=== PATIENT | male | born 1960 | race African-American/Black ===

== ENCOUNTER 2018-04-28 01:29 | Inpatient (IN) ==
--- NOTE | 2018-04-28 02:51 | ED ---
HPI General Chief complaint: Chest Pain Stated complaint: Medical Time Seen by Provider: 04/28/18 02:20 Source: patient History of Present Illness HPI narrative: Is a 58-year-old man that was brought in by law enforcement apparently from the airport. History sounds like he has a history of multiple strokes in the past. He has left leg weakness. He was living at home until about a week or so ago made the decision to stop living at home by himself. Previously he had used a walker or cane to get around but he states his doctor actually told him he did not need a walker to get around now. He made the decision to come to a rehab hospital here in [place] to get stronger he states he spent a week packing up all of his stuff. His sister helped arrange the rehab hospital. He does not know the name of the hospital. He apparently arrived at the airport this evening, and was a little bit late. His rider however was supposed to meet him at the airport left. He apparently was therefore stuck at the airport, had been seizing for several hours, and then was brought to the emergency department. Initially there is some complaints of somatic symptoms. With me he states only that he had a little bit of left arm pain that started during the flight. Related Data Home Medications Medication Instructions Recorded Confirmed acetaminophen [Tylenol] 650 mg PO Q6H PRN 04/28/18 04/28/18 albuterol sulfate [Ventolin HFA] 2 puff INHALATION Q4-6H PRN 04/28/18 04/28/18 amlodipine 10 mg PO DAILY 04/28/18 04/28/18 aspirin [Aspir-81] 81 mg PO DAILY 04/28/18 04/28/18 atorvastatin 40 mg PO DAILY 04/28/18 04/28/18 docusate sodium 50 mg PO BID 04/28/18 04/28/18 furosemide [Lasix] 10 mg PO DAILY 04/28/18 04/28/18 hydrochlorothiazide 25 mg PO BID 04/28/18 04/28/18 ibuprofen 800 mg PO TID PRN 04/28/18 04/28/18 lamotrigine 25 mg PO BID 04/28/18 04/28/18 levetiracetam [Keppra] 750 mg PO BID 04/28/18 04/28/18 lisinopril 2.5 mg PO DAILY 04/28/18 04/28/18 meclizine 25 mg PO BID PRN 04/28/18 04/28/18 metformin 1,000 mg PO BID 04/28/18 04/28/18 nitroglycerin [Nitrostat] 0.4 mg SUBLINGUAL Q5-15M PRN 04/28/18 04/28/18 ondansetron [Zofran ODT] 4 mg PO Q6-8H PRN 04/28/18 04/28/18 trazodone 150 mg PO DAILY 04/28/18 04/28/18 Allergies Allergy/AdvReac Type Severity Reaction Status Date / Time iodine Allergy Anaphylaxis Verified 04/28/18 01:47 latex Allergy Anaphylaxis Verified 04/28/18 01:47 shellfish derived Allergy Anaphylaxis Verified 04/28/18 01:38 Review of Systems ROS: all other systems reviewed are negative [facility] Medical History Medical History Diabetes (Acute) High cholesterol (Acute) Hypertension (Acute) Seizure (Acute) Stroke (Acute) TIA (transient ischemic attack) (Acute) Social History Social History Substance History: No History of Abuse Second Hand Smoke Exposure: No Smoking Status: Never smoker How Often Do You Have a Drink Containing Alcohol: Never Recent Travel in [facility] within the Last 8 Weeks: No Recent Out of Country Travel within the Last 8 Weeks: No Immunization History Tetanus Immunization: Unsure Exam Narrative Exam Narrative: GENERAL: 58-year-old man, well-appearing, no acute distress. SKIN: Focused skin assessment warm/dry. HEAD: Atraumatic. Normocephalic. EYES: Pupils equal and round. No scleral icterus. No injection or drainage. ENT: No nasal bleeding or discharge. Mucous membranes pink and moist. NECK: Trachea midline. No JVD. CARDIOVASCULAR: Regular rate and rhythm. No murmur appreciated. RESPIRATORY: No accessory muscle use. Clear to auscultation. Breath sounds equal bilaterally. GASTROINTESTINAL: Abdomen soft, non-tender, nondistended. Hepatic and splenic margins not palpable. MUSCULOSKELETAL: No obvious deformities. No clubbing. No cyanosis. No edema. NEUROLOGICAL: Awake and alert. No obvious cranial nerve deficits. He does have some stiffness and weakness on the left side. Normal speech. He is able to walk but requires some assistance. There is a little bit of dragging gait on the left foot. PSYCHIATRIC: Appropriate mood and affect; insight and judgment normal. Course Initial Documented Vital Signs Temperature 97.8 F 04/28/18 01:30 Pulse Rate 89 04/28/18 01:30 Respiratory Rate 20 04/28/18 01:30 Blood Pressure 180/99 H 04/28/18 01:30 Pulse Oximetry 98 04/28/18 01:30 Last Documented Vital Signs Temperature 97.8 F 04/28/18 01:30 Pulse Rate 89 04/28/18 01:30 Respiratory Rate 20 04/28/18 01:30 Blood Pressure 180/99 H 04/28/18 01:30 Pulse Oximetry 98 04/28/18 01:30 Medical Decision Making MDM Narrative Medical decision making narrative: 58-year-old male presents to the emergency department with what appears to be isolated case management issues. But for his ride not showing up at the airport, he would not be in the emergency department. There is some complaints of pain on the left arm as well. I do not think this is an anginal equivalent. Clearly he has cardiovascular risk factors. His EKG shows some lateral ST/T wave changes. Check a troponin. We will try to talk to a [facility] records administrator it sounds like they have been talkative from the airport. Will also try to call his sister to figure out where he was trying to get to. Labs are unremarkable. Note no case management right now. We will have them see him in the morning, try to discharge to the rehab facility that should be expecting him. Medical Screen Exam Complete: Yes Emergency Medical Condition: Yes Lab Data Result diagrams: 04/28/18 03:00 04/28/18 03:00 Lab Results 04/28/18 04/28/18 Range/Units 03:00 03:00 WBC 6.6 (4.0-11.0) th/mm3 RBC 4.57 (4.50-5.90) mil/mm3 Hgb 15.0 (13.0-17.0) gm/dL Hct 43.2 (39.0-51.0) % MCV 94.5 (80.0-100.0) fL MCH 32.7 (27.0-34.0) pg MCHC 34.6 (32.0-36.0) % RDW 12.1 (11.6-17.2) % Plt Count 241 (150-450) th/mm3 MPV 7.7 (7.0-11.0) fL Neut % (Auto) 37.8 (16.0-70.0) % Lymph % (Auto) 46.7 H (9.0-44.0) % [place] % (Auto) 12.6 H (0.0-8.0) % Eos % (Auto) 2.1 (0.0-4.0) % Baso % (Auto) 0.8 (0.0-2.0) % Neut # (Auto) 2.5 (1.8-7.7) th/mm3 Lymph # (Auto) 3.1 (1.0-4.8) th/mm3 [place] # (Auto) 0.8 (0.0-0.9) th/mm3 Eos # (Auto) 0.1 (0.0-0.4) th/mm3 Baso # (Auto) 0.1 (0.0-0.2) th/mm3 WBC Differential . Differential Comment Auto diff final Sodium 142 (136-145) meq/L Potassium 3.1 L (3.5-5.1) meq/L Chloride 106 (98-107) meq/L Carbon Dioxide 28.2 (21.0-32.0) meq/L Anion Gap 8 (5-15) meq/L BUN 11 (7-18) mg/dL Creatinine 0.97 (0.60-1.30) mg/dL Estimated GFR Greater than 89 (>89) mL/min Random Glucose 126 H (74-106) mg/dL Calcium 8.8 (8.5-10.1) mg/dL Troponin I Less than 0.02 L (0.02-0.05) ng/mL Discharge Plan Discharge Disposition Patient Disposition: 01 Discharge Home Discharge Condition Condition: Stable Discharge Order Discharge Orders: Discharge Order (Routine); Ordered 04/28/18 Ordered By: Mustapha Cage Discharge Details Diagnosis: Weakness Physicians Team ED Provider: Mustapha Cage Primary Care Provider: UNKNOWN, Rxs /Orders / Referrals /Forms Prescriptions: No Action atorvastatin 40 mg Tablet 40 mg PO DAILY RF: 0 acetaminophen [Tylenol] 325 mg Tablet 650 mg PO Q6H PRN (Reason: Pain) RF: 0 ibuprofen 800 mg Tablet 800 mg PO TID PRN (Reason: Pain) RF: 0 docusate sodium 50 mg Capsule 50 mg PO BID RF: 0 aspirin [Aspir-81] 81 mg Tablet,Delayed Release (Dr/Ec) 81 mg PO DAILY RF: 0 lamotrigine 25 mg Tablet 25 mg PO BID RF: 0 meclizine 25 mg Tablet 25 mg PO BID PRN (Reason: Nausea) RF: 0 amlodipine 10 mg Tablet 10 mg PO DAILY RF: 0 trazodone 150 mg Tablet 150 mg PO DAILY RF: 0 metformin 1,000 mg Tablet 1,000 mg PO BID RF: 0 nitroglycerin [Nitrostat] 0.4 mg Tablet, Sublingual 0.4 mg SUBLINGUAL Q5-15M PRN (Reason: Pain) RF: 0 levetiracetam [Keppra] 750 mg Tablet 750 mg PO BID RF: 0 hydrochlorothiazide 25 mg Tablet 25 mg PO BID RF: 0 furosemide [Lasix] 20 mg Tablet 10 mg PO DAILY RF: 0 albuterol sulfate [Ventolin HFA] 90 mcg/actuation Hfa Aerosol Inhaler 2 puff INHALATION Q4-6H PRN (Reason: Shortness Of Breath) RF: 0 ondansetron [Zofran ODT] 4 mg Tablet,Disintegrating 4 mg PO Q6-8H PRN (Reason: Nausea) RF: 0 lisinopril 2.5 mg Tablet 2.5 mg PO DAILY RF: 0 Discharge Instructions Patient Printed Instructions: Weakness (ED) Additional Instructions: Continue current medications. Follow-up with your rehab facility as planned. Status ED Status: Ready for Discharge
[2018-04-28] MEDS ORDERED: Acetaminophen 500 MG Tablet PO ONE (02:57)
[2018-04-28 03:09] LABS: Baso # (Auto) 0.1 th/mm3 (0.0-0.2); Baso % (Auto) 0.8 % (0.0-2.0); Eos # (Auto) 0.1 th/mm3 (0.0-0.4); Eos % (Auto) 2.1 % (0.0-4.0); Hematocrit 43.2 % (39.0-51.0); Lymph # (Auto) 3.1 th/mm3 (1.0-4.8); Lymph % (Auto) 46.7 % (9.0-44.0); Mean Corpuscular HGB Conc 34.6 % (32.0-36.0); Mean Corpuscular Hemoglobin 32.7 pg (27.0-34.0); Mean Corpuscular Volume 94.5 fL (80.0-100.0); Mean Platelet Volume 7.7 fL (7.0-11.0); Mono # (Auto) 0.8 th/mm3 (0.0-0.9); Mono % (Auto) 12.6 % (0.0-8.0); Neut # (Auto) 2.5 th/mm3 (1.8-7.7); Neut % (Auto) 37.8 % (16.0-70.0); Platelet Count 241 th/mm3 (150-450); Red Blood Count 4.57 mil/mm3 (4.50-5.90); Red Cell Distribution Width 12.1 % (11.6-17.2); White Blood Count 6.6 th/mm3 (4.0-11.0)
[2018-04-28 03:31] LABS: Anion Gap 8 meq/L (5-15); Blood Urea Nitrogen 11 mg/dL (7-18); Calcium 8.8 mg/dL (8.5-10.1); Carbon Dioxide 28.2 meq/L (21.0-32.0); Chloride 106 meq/L (98-107); Glomerular Filtration Rate Greater Than 89 mL/min (>89); Glucose,Random 126 mg/dL (74-106); Potassium 3.1 meq/L (3.5-5.1); Sodium 142 meq/L (136-145)
--- NOTE | 2018-04-28 10:04 | ECG ---
Date Performed: 04/28/2018 Time Performed: 01:49:33 PTAGE: 58 years EKG: Baseline artifact present Sinus rhythm WITH FREQUENT VENTRICULAR PREMATURE COMPLEXES POSSIBLE LEFT ATRIAL ENLARGEMENT Nonspecific ST and T wave abnormalities ABNORMAL ECG NO PREVIOUS TRACING DOCTOR: Noah Pradhan Interpretating Date/Time 04/28/2018 10:03:21
[2018-04-28] MEDS ORDERED: Acetaminophen 325 MG Tablet PO PRN (13:57)
[2018-04-28] MEDS ORDERED: Nitroglycerin SL (Override) 0.4 MG Tab SL PRN (13:57)
[2018-04-28] MEDS ORDERED: Dextrose 50% in Water 50 ML Vial IV.PUSH PRN ×2 (14:01→14:04)
[2018-04-28] MEDS ORDERED: Bisacodyl 10 MG Supp RECTAL PRN (14:01)
--- NOTE | 2018-04-28 14:06 | P.HPIM ---
History of Present Illness Primary Care Physician: UNKNOWN Chief Complaint: Worsening left-sided weakness History of Present Illness: This is a 58-year-old male with history of previous CVA, TIA, hypertension, diabetes mellitus brought in by the enforcement from the airport. He has baseline left sided weakness from a previous stroke and was living at home independently until about a week ago but has recently made a decision to stop living at home by himself because he started having worsening left-sided weakness and is more difficult for him to ambulate. Previously he used a walker or cane to get around but now it is even harder. He made a decision to go to rehab hospital in [place] to get stronger. Rehab has apparently been arranged by the sister. However during his flight, he noticed worsening slurring of speech and left-sided weakness apparently getting better. He arrived in the airport late and no one picked him up hence midline enforcement brought him to the hospital. He denies any fever, nausea, vomiting, headache but is a mild left arm pain during the flight. - Diagnosis (1) TIA (transient ischemic attack) [facility] - History History Provided By: Patient - Medical History Medical History: Medical History (Last Reviewed 04/28/18 @ 13:49 by Jazmyne Chowdary MD) Diabetes High cholesterol Hypertension Seizure Stroke TIA (transient ischemic attack) - Surgical History Surgical History: Surgical History (Last Updated 04/28/18 @ 13:50 by Jazmyne Chowdary MD) H/O knee surgery History of mandibular surgery - Family History Family History: Family History (Last Updated 04/28/18 @ 13:50 by Jazmyne Chowdary MD) Other No pertinent family history - Social History I have reviewed the patient's Social History: Yes - Tobacco History Second Hand Smoke Exposure: No Smoking Status: Never smoker - Alcohol History How Often Do You Have a Drink Containing Alcohol: Never - Substance Use History Substance History: No History of Abuse - Travel History Recent Travel in the [place] Within the Last 8 Weeks: No Recent Travel Out of the Country Within the Last 8 Weeks: No - Immunization History Tetanus Immunization: Unsure Medications and Allergies Allergies Allergy/AdvReac Type Severity Reaction Status Date / Time iodine Allergy Anaphylaxis Verified 04/28/18 01:47 latex Allergy Anaphylaxis Verified 04/28/18 01:47 shellfish derived Allergy Anaphylaxis Verified 04/28/18 01:38 Home Medications Medication Instructions Recorded Confirmed Type acetaminophen [Tylenol] 650 mg PO Q6H PRN 04/28/18 04/28/18 History albuterol sulfate [Ventolin HFA] 2 puff INHALATION Q4-6H PRN 04/28/18 04/28/18 History amlodipine 10 mg PO DAILY 04/28/18 04/28/18 History aspirin [Aspir-81] 81 mg PO DAILY 04/28/18 04/28/18 History atorvastatin 40 mg PO DAILY 04/28/18 04/28/18 History docusate sodium 50 mg PO BID 04/28/18 04/28/18 History furosemide [Lasix] 10 mg PO DAILY 04/28/18 04/28/18 History hydrochlorothiazide 25 mg PO BID 04/28/18 04/28/18 History ibuprofen 800 mg PO TID PRN 04/28/18 04/28/18 History lamotrigine 25 mg PO BID 04/28/18 04/28/18 History levetiracetam [Keppra] 750 mg PO BID 04/28/18 04/28/18 History lisinopril 2.5 mg PO DAILY 04/28/18 04/28/18 History meclizine 25 mg PO BID PRN 04/28/18 04/28/18 History metformin 1,000 mg PO BID 04/28/18 04/28/18 History nitroglycerin [Nitrostat] 0.4 mg SUBLINGUAL Q5-15M PRN 04/28/18 04/28/18 History ondansetron [Zofran ODT] 4 mg PO Q6-8H PRN 04/28/18 04/28/18 History trazodone 150 mg PO DAILY 04/28/18 04/28/18 History Exam Vital signs: Vital Signs 04/28/18 01:30 04/28/18 02:30 04/28/18 03:56 Temperature 97.8 F Pulse Rate 89 82 86 Respiratory Rate 20 18 17 Blood Pressure 180/99 H 147/88 H 156/93 H Pulse Oximetry 98 99 98 04/28/18 10:45 Temperature 97.8 F Pulse Rate 80 Respiratory Rate 20 Blood Pressure 145/79 H Pulse Oximetry 99 Intake & Output 04/27/18 04/28/18 04/28/18 18:59 06:59 18:59 Weight 107 kg Narrative: GENERAL: Not in acute distress, well-nourished. HEAD: Atraumatic. Normocephalic. EYES: PERRL, full EOMs, no jaundice, nonicteric, pink conjunctivae without injection, moist mucosa ENT: Nose without bleeding, purulent drainage.Airway patent. NECK: Trachea midline, no mass, no obvious thyromegaly. CARDIOVASCULAR: Regular rate and rhythm without murmurs, gallops, or rubs. RESPIRATORY: Clear to auscultation with normal respiratory effort. Breath sounds equal bilaterally. No use of accessory muscles of respiration. GASTROINTESTINAL: Abdomen soft, normal bowel sounds, non-tender, nondistended. No hepato-splenomegaly or palpable mass. No guarding. ISAEL and exam deferred. MUSCULOSKELETAL: Extremities without clubbing, cyanosis, or edema. INTEGUMENTARY: Warm and dry, no rash of generalized distribution. NEUROLOGICAL: Awake, alert, oriented 3. (+) Nasolabial fold narrowing on the left, mild slurring of speech. Moves all 4 extremities, muscle strength testing 5 over 5 both upper extremities, 4/5 LLE compared to 5/5 on RLE which allegedly worse than usual. There is also decreased sensation left upper extremity. No pronator drift. PSYCHIATRIC: Normal mood, appropriate affect. Results - Labs CBC & Chem 7: 04/28/18 03:00 04/28/18 03:00 Labs: Short CBC 04/28/18 Range/Units 03:00 WBC 6.6 (4.0-11.0) th/mm3 Hgb 15.0 (13.0-17.0) gm/dL Hct 43.2 (39.0-51.0) % Plt Count 241 (150-450) th/mm3 BMP 04/28/18 03:00 Sodium 142 Potassium 3.1 L Chloride 106 Carbon Dioxide 28.2 BUN 11 Creatinine 0.97 Calcium 8.8 Cardiac Enzymes 04/28/18 Range/Units 03:00 Troponin I Less than 0.02 L (0.02-0.05) ng/mL Caprini VTE Risk Assessment Caprini VTE Risk Assessment: No/Low Risk (score <= 1) Caprini Risk Assessment Model: Point Value = 1 Point Value = 2 Point Value = 3 Point Value = 5 Age 41-60 Minor surgery BMI > 25 kg/m2 Swollen legs Varicose veins or History of unexplained or recurrent spontaneous Oral contraceptives or hormone replacement Sepsis (< 1 month) Serious lung disease, including pneumonia (< 1 month) Abnormal pulmonary function Acute myocardial infarction Congestive heart failure (< 1 month) History of inflammatory bowel disease Medical patient at bed rest Age 61-74 Arthroscopic surgery Major open surgery (> 45 min) Laparoscopic surgery (> 45 min) Malignancy Confined to bed (> 72 hours) Immobilizing plaster cast Central venous access Age >= 75 History of VTE Family history of VTE Factor V Leiden Prothrombin [id number] Lupus anticoagulant Anticardiolipin antibodies Elevated serum homocysteine Heparin-induced thrombocytopenia Other congenital or acquired thrombophilia Stroke (< 1 month) Elective arthroplasty Hip, pelvis, or leg fracture Acute spinal cord injury (< 1 month) Prophylaxis Regimen: Total Risk Factor Score Risk Level Prophylaxis Regimen 0-1 Low Early ambulation 2 Moderate Order ONE of the following: *Sequential Compression Device (SCD) *Heparin 5000 units SQ BID 3-4 Higher Order ONE of the following medications: *Heparin 5000 units SQ TID *Enoxaparin/Lovenox 40 mg SQ daily (WT < 150 kg, CrCl > 30 mL/min) *Enoxaparin/Lovenox 30 mg SQ daily (WT < 150 kg, CrCl > 10-29 mL/min) *Enoxaparin/Lovenox 30 mg SQ BID (WT < 150 kg, CrCl > 30 mL/min) AND/OR *Sequential Compression Device (SCD) 5 or more Highest Order ONE of the following medications: *Heparin 5000 units SQ TID (Preferred with Epidurals) *Enoxaparin/Lovenox 40 mg SQ daily (WT < 150 kg, CrCl > 30 mL/min) *Enoxaparin/Lovenox 30 mg SQ daily (WT < 150 kg, CrCl > 10-29 mL/min) *Enoxaparin/Lovenox 30 mg SQ BID (WT < 150 kg, CrCl > 30 mL/min) AND *Sequential Compression Device (SCD) Assessment and Plan - Assessment (1) TIA (transient ischemic attack) Code(s): G45.9 - Transient cerebral ischemic attack, unspecified Status: Acute - Plan This is a 58-year-old male with history of diabetes mellitus, hypertension previous CVA with new left-sided weakness and slurring of speech Rule out TIA-allegedly new sided weakness/slurring of speech that is getting better. Since patient is past the tPA window and symptoms are getting better, we will go ahead and check an MRI of the head and carotid ultrasound. Patient has previous history of stroke. Consult neurology, restart aspirin and statin, check lipid panel, hemoglobin A1c, keep on telemetry. Hypertension, uncontrolled-restart home medications including Norvasc, Lasix, hydrochlorothiazide, lisinopril, will let blood pressure autoregulate for now. Diabetes mellitus-restart metformin, sliding scale insulin History of seizures-restart Keppra and lamotrigine. Consult physical therapy. Consult case management. Patient may already have a place at the [place]. DVT prophylaxis: Lovenox.
[2018-04-28] MEDS: Lisinopril 5 MG Tablet PO SCH (15:32)
[2018-04-28] MEDS: amLODIPine 10 MG Tablet PO SCH (15:32)
[2018-04-28] MEDS: Enoxaparin Inj 30 MG/0.3 ML Syringe SQ SCH (15:32)
[2018-04-28] MEDS: levETIRAcetam 250 MG Tablet PO SCH ×2 (16:23→22:02)
[2018-04-28] MEDS: Furosemide 20 MG Tablet PO SCH (16:23)
[2018-04-28] MEDS: lamoTRIgine 25 MG TABLET PO SCH ×2 (16:24→22:14)
--- NOTE | 2018-04-28 17:02 | US ---
EXAM DATE: 04/28/2018 4:30 PM EST AGE/SEX: 58 years / Male INDICATIONS: Transient ischemic attack. CLINICAL DATA: This is the patient's initial encounter. Patient reports that signs and symptoms have been present for 1 day and indicates a pain score of 0/10. MEDICAL/SURGICAL HISTORY: . Diabetes. Hypercholesterolemia. Hypertension. Seizure. Transient ischemic attack. . Knee surgery. Mandibular surgery. COMPARISON: No prior exams available for comparison. VELOCITY PARAMETERS: ICA/CCA Ratio: Right 0.9 , Left 0.6 ICA: Right 81 cm/sec, Left 75 cm/sec CCA: Right 88 cm/sec, Left 117 cm/sec ECA: Right 85 cm/sec, Left 77 cm/sec Vertebral: Right 31 cm/sec antegrade, Left 47 cm/sec antegrade FINDINGS: Right Carotid: No significant plaque is visualized.The waveforms are within normal limits. Left Carotid: No significant plaque is visualized. The waveforms are within normal limits. Other: None. CONCLUSION: 1. Right Internal Carotid Artery: Normal. No significant plaque or narrowing. 2. Left Internal Carotid Artery: Normal. No significant plaque or narrowing. Electronically signed by: Sehrwin Maldonado MD 04/28/2018 5:00 PM EST
[2018-04-28] MEDS: Insulin NovoLOG Aspart Correctional Sugar Inj SQ SCH ×2 (18:06→22:10)
[2018-04-28] MEDS: hydroCHLOROthiazide 25 MG Tablet PO SCH (18:07)
--- NOTE | 2018-04-28 21:15 | CT ---
EXAM DATE: 04/28/2018 9:07 PM EST AGE/SEX: 58 years / Male INDICATIONS: Left sided weakness. CLINICAL DATA: This is the patient's initial encounter. Patient reports that signs and symptoms have been present for 1 day and indicates a pain score of 0/10. MEDICAL/SURGICAL HISTORY: Diabetes. Hypertension. Cerebrovascular disease. Seizure None. RADIATION DOSE: 56.35 CTDI (mGy) COMPARISON: No prior exams available for comparison. TECHNIQUE: CT of the head without contrast. Using automated exposure control and adjustment of the mA and/or kV according to patient size, radiation dose was kept as low as reasonably achievable to ob tain optimal diagnostic quality images. DICOM format image data is available electronically for revi ew and comparison. FINDINGS: Cerebrum: The ventricles are normal for age. No evidence of midline shift, mass lesion, hemorrhage or acute infarction. No extraaxial fluid collections are seen. There is an old white matter lacunar infarct of the right frontal lobe measuring 1.2 x 2.0 cm. Posterior Fossa: The cerebellum and brainstem are intact. The 4th ventricle is midline. The cerebe llopontine angle is unremarkable. Extracranial: The visualized portion of the orbits is intact. Skull: The calvaria is intact. No evidence of skull fracture. CONCLUSION: 1. No acute intracranial abnormality. 2. 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 . Electronically signed by: Sherwin Maldonado MD 04/28/2018 9:13 PM EST
[2018-04-28] MEDS: Docusate Sodium Liq 100 MG/10 ML UDC PO SCH (22:11)
--- NOTE | 2018-04-29 01:44 | MB ---
cc: Óscar Crook MD, PhD DATE: 04/28/2018 REASON FOR CONSULTATION: Seizure, worsening left-sided weakness. HISTORY OF PRESENT ILLNESS: This is a very nice 58-year-old man who states he has had 3 strokes in the past. The first he states occurred when he was 16 years of age. He states it was due to "hypertension." He states he takes Xarelto. He also has secondary seizures, which he describes as grand mal seizures. He has residual left-sided weakness due to a stroke, but today was at the airport apparently was told that he had seizure and now he feels that his left side is weaker than normal. He had worsening slurring of his speech as well. PAST MEDICAL HISTORY: Remarkable for 3 strokes in the past at a young age, hypertension, diabetes, seizure disorder, hypercholesterolemia. HOME MEDICATIONS: 1. Tylenol. 2. Albuterol. 3. Amlodipine 10 mg daily. 4. Aspirin 81 mg daily. 5. Atorvastatin 40 mg daily. 6. Docusate 50 mg b.i.d. 7. Lasix 10 mg daily. 8. Hydrochlorothiazide 25 mg daily. 9. Ibuprofen 800 mg daily. 10. Lamotrigine 25 mg b.i.d. 11. Keppra 750 mg b.i.d. 12. Lisinopril 2.5 mg daily. 13. Meclizine 25 mg daily. 14. Metformin. 15. Zofran. 16. He states he thinks he is on Xarelto as well, but this is not documented. PAST MEDICAL HISTORY: The patient has a vagus nerve stimulator in place for his seizures. PHYSICAL EXAMINATION: NEUROLOGIC: His blood pressure is 155/71, pulse is 79, respiratory rate is 22, temperature 98 degrees. HIGHER CORTICAL FUNCTION: He is alert. Speech is dysarthric. Cranial nerves intact. Motor exam, he has got a left hemiparesis roughly 3/5, left arm and left leg, which he states is weaker than baseline. Normal strength on the right. Reflexes are symmetric. There is no Babinski sign. DIAGNOSTIC DATA: CT of the brain, no acute changes and old right periventricular white matter lacunar infarction. There is no hemorrhage. Carotid ultrasound is within normal limits with no significant carotid artery stenosis. His EKG is normal sinus rhythm with frequent PVCs. LABORATORY DATA: White count is 6600, hemoglobin 15, hematocrit 43.2%, platelets 241,000. Sodium is 142, potassium 3.1, chloride 106, CO2 is 28.2, BUN is 11, creatinine 0.97, GFR is greater than 89, glucose 126, calcium 8.8. IMPRESSION: Recurrent seizures and increasing left-sided weakness. Rule out recurrent stroke. This could have been seizure, now with a postictal Jaren's paralysis. RECOMMENDATION: Because of the VNS, unable to do an MRI of the brain at the present time. I would like to repeat the CT of the brain tomorrow to further assess for a new stroke. We will obtain an EEG as well, clarify his anticoagulant status. He feels he was on Xarelto at home. I would like to check hypercoagulable labs because of his strokes at a young age. For now, continue him on aspirin. I will also increase his Keppra dose to 1000 mg b.i.d. Óscar Crook MD, PhD KATHLEEN/riddhi , 09:48 PM , 09:55 PM
[2018-04-29 06:46] LABS: Anion Gap 8 meq/L (5-15); Blood Urea Nitrogen 7 mg/dL (7-18); Calcium 8.1 mg/dL (8.5-10.1); Carbon Dioxide 28.9 meq/L (21.0-32.0); Chloride 105 meq/L (98-107); Glomerular Filtration Rate Greater Than 89 mL/min (>89); Glucose,Random 100 mg/dL (74-106); Potassium 3.3 meq/L (3.5-5.1); Sodium 142 meq/L (136-145)
[2018-04-29 06:47] LABS: Cholesterol 136 mg/dL (120-200); Triglycerides 111 mg/dL (42-150)
[2018-04-29 06:50] LABS: Chol/HDL Ratio 2.74 Ratio; HDL Cholesterol 49.6 mg/dL (40.0-60.0); LDL Cholesterol,Calculated 64 mg/dL (0-99)
[2018-04-29] MEDS: Insulin NovoLOG Aspart Correctional Sugar Inj SQ SCH ×4 (07:46→20:43)
[2018-04-29] MEDS: Docusate Sodium Liq 100 MG/10 ML UDC PO SCH ×2 (09:05→20:42)
[2018-04-29] MEDS: Lisinopril 5 MG Tablet PO SCH (09:05)
[2018-04-29] MEDS: lamoTRIgine 25 MG TABLET PO SCH ×2 (09:06→20:42)
[2018-04-29] MEDS: Furosemide 20 MG Tablet PO SCH (09:07)
[2018-04-29] MEDS: amLODIPine 10 MG Tablet PO SCH (09:07)
[2018-04-29] MEDS: levETIRAcetam 250 MG Tablet PO SCH ×2 (09:08→20:42)
[2018-04-29] MEDS: hydroCHLOROthiazide 25 MG Tablet PO SCH ×2 (10:01→18:46)
--- NOTE | 2018-04-29 11:22 | ECHRPT ---
Indication: cva/tia CONCLUSIONS Normal left ventricular size. Moderate concentric left ventricular hypertrophy. The left ventricular systolic function is normal with an estimated ejection fraction in the range of 55-60%. Ulmeu-af-kthz mitral valve regurgitation. The estimated pulmonary arterial pressure is 38 mmHg. BP: / HR: Rhythm: MEASUREMENTS (Male / Female) Normal Values Technical Quality: 2D ECHO LV Diastolic Diameter PLAX 4.6 cm 4.2 - 5.9 / 3.9 - 5.3 cm LV Systolic Diameter PLAX 2.9 cm IVS Diastolic Thickness 1.3 cm 0.6 - 1.0 / 0.6 - 0.9 cm LVPW Diastolic Thickness 1.2 cm 0.6 - 1.0 / 0.6 - 0.9 cm LV Relative Wall Thickness 0.5 RV Internal Dim ED PLAX 2.4 cm LVOT Diameter 2.0 cm Aortic Root Diameter 2.3 cm LA Systolic Diameter LX 2.8 cm 3.0 - 4.0 / 2.7 - 3.8 cm LV Ejection Fraction MOD 4C 71.1 % LV Ejection Fraction 4C AL 71.6 % LV Ejection Fraction MOD 2C 47.3 % LV Ejection Fraction 2C AL 49.0 % M-MODE Aortic Root Diameter MM 2.9 cm LA Systolic Diameter MM 4.2 cm LA Ao Ratio MM 1.4 DOPPLER AV Peak Velocity 126.0 cm/s AV Peak Gradient 6.4 mmHg LVOT Peak Velocity 115.0 cm/s LVOT Peak Gradient 5.3 mmHg AV Area Cont Eq pk 2.9 cm Mitral E Point Velocity 57.8 cm/s Mitral A Point Velocity 60.0 cm/s Mitral E to A Ratio 1.0 LV E' Lateral Velocity 8.6 cm/s Mitral E to LV E' Lateral Ratio 6.7 LV E' Septal Velocity 6.3 cm/s Mitral E to LV E' Septal Ratio 9.1 TR Peak Velocity 262.0 cm/s TR Peak Gradient 27.0 mmHg Right Atrial Pressure 10.0 mmHg Pulmonary Artery Systolic Pressu 37.5 mmHg Right Ventricular Systolic Press 37.5 mmHg PV Peak Velocity 94.8 cm/s PV Peak Gradient 3.6 mmHg FINDINGS LEFT VENTRICLE Normal left ventricular size. Moderate concentric left ventricular hypertrophy. The left ventricular systolic function is normal with an estimated ejection fraction in the range of 55-60%. RIGHT VENTRICLE Normal right ventricular size and systolic function. LEFT ATRIUM The left atrial size is normal. RIGHT ATRIUM The right atrial size is normal. ATRIAL SEPTUM Normal atrial septal thickness without atrial level shunting by limited color doppler interrogation. AORTA The aortic root and proximal ascending aorta are normal in size on limited imaging. MITRAL VALVE Tucho-xo-ebrw mitral valve regurgitation. AORTIC VALVE Trileaflet aortic valve. No aortic valve stenosis or regurgitation. TRICUSPID VALVE The estimated pulmonary arterial pressure is 38 mmHg. PULMONARY VALVE No pulmonary valve regurgitation or stenosis. VESSELS The inferior vena cava is normal in size. PERICARDIUM No pericardial effusion. Mustapha Sellers MD, FACC (Electronically Signed) Final Date:29 April 2018 11:21
[2018-04-29 11:23] LABS: Hemoglobin A1c 5.1 % (4.3-6.0)
--- NOTE | 2018-04-29 13:02 | P.PNIM ---
Subjective Interval history: Late entry. Patient seen earlier this morning. No further seizures. Left- sided weakness persisting. Physical Exam Vital signs: Vital Signs 04/28/18 15:34 04/28/18 15:36 04/28/18 16:27 Temperature 98 F Pulse Rate 79 74 Respiratory Rate 22 16 Blood Pressure 155/71 H 138/84 Pulse Oximetry 98 98 04/28/18 19:03 04/29/18 00:00 04/29/18 03:34 Temperature 98.1 F 97.8 F 97.7 F Pulse Rate 72 68 57 L Respiratory Rate 18 Blood Pressure 122/77 107/64 109/59 L Pulse Oximetry 96 100 99 04/29/18 08:00 04/29/18 12:00 Temperature 97.4 F L 97.4 F L Pulse Rate 63 74 Respiratory Rate 20 20 Blood Pressure 115/63 116/73 Pulse Oximetry 98 97 Intake & Output 04/28/18 04/29/18 04/29/18 18:59 06:59 18:59 Intake Total 120 / 120 Output Total 450 / 450 Balance -330 / -330 Weight 104.326 kg Intake: Oral 120 / 120 Output: Urine 450 / 450 Other: # Voids 0 1 Date of Last Bowel Movement 04/26/18 04/26/18 Weight On Admission 107 kg Narrative: GENERAL: Not in acute distress CARDIOVASCULAR: Regular rate and rhythm without murmurs, gallops, or rubs. RESPIRATORY: Clear to auscultation with normal respiratory effort. Breath sounds equal bilaterally. No use of accessory muscles of respiration. NEUROLOGICAL: Awake, alert, oriented 3. Left upper and lower extremities with 4 out of 5 strength. The rest of his extremities are 5 out of 5. PSYCHIATRIC: Normal mood, appropriate affect. Results - Labs CBC & Chem 7: 04/28/18 03:00 04/29/18 05:59 Laboratory Results - last 24 hr 04/28/18 04/28/18 04/29/18 18:05 22:09 05:59 Sodium 142 Potassium 3.3 L Chloride 105 Carbon Dioxide 28.9 Anion Gap 8 BUN 7 Creatinine 0.73 Estimated GFR Greater than 89 POC Glucose 109 85 Random Glucose 100 Hemoglobin A1c Calcium 8.1 L Triglycerides 111 Cholesterol 136 LDL Cholesterol, Calc 64 HDL Cholesterol 49.6 Cholesterol/HDL Ratio 2.74 04/29/18 04/29/18 04/29/18 05:59 07:37 12:04 Sodium Potassium Chloride Carbon Dioxide Anion Gap BUN Creatinine Estimated GFR POC Glucose 98 99 Random Glucose Hemoglobin A1c 5.1 Calcium Triglycerides Cholesterol LDL Cholesterol, Calc HDL Cholesterol Cholesterol/HDL Ratio - Imaging Impressions Carotid Doppler Study 04/28/18 00:00 CONCLUSION: 1. Right Internal Carotid Artery: Normal. No significant plaque or narrowing. 2. Left Internal Carotid Artery: Normal. No significant plaque or narrowing. Head CT 04/28/18 00:00 CONCLUSION: 1. No acute intracranial abnormality. 2. 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 . Assessment and Plan - Assessment (1) TIA (transient ischemic attack) Code(s): G45.9 - Transient cerebral ischemic attack, unspecified Status: Acute - Plan 58-year-old male with history of diabetes mellitus, hypertension previous CVA with new left-sided weakness and slurring of speech Rule out TIA-allegedly new sided weakness/slurring of speech that is getting better. - Patient reportedly has previous history of stroke. -Appreciate neurology following. -Continue aspirin and statin. keep on telemetry. History of seizures-reported breakthrough seizures. Apparently today, the patient reported to staff that he had another seizure. This was not witnessed. - Continue with increased dose of Keppra. Continue lamotrigine. -Appreciate neurology following. Repeat CAT scan today is pending. Hypertension -Continue home medications including Norvasc, Lasix, hydrochlorothiazide, lisinopril Diabetes mellitus-continue metformin, sliding scale insulin Physical therapy following. Patient will need rehab. Case management following. DVT prophylaxis: Lovenox.
--- NOTE | 2018-04-29 15:19 | CT ---
EXAM DATE: 04/29/2018 3:13 PM EST AGE/SEX: 58 years / Male INDICATIONS: Hemiparesis, Headache CLINICAL DATA: This is the patient's subsequent encounter. Patient reports that signs and symptoms h ave been present for 1 day and indicates a pain score of 3/10. MEDICAL/SURGICAL HISTORY: Diabetes. Hypertension. Stroke. . Mandibular surgery RADIATION DOSE: 42.12 CTDI (mGy) [place] [facility] [place]. . TECHNIQUE: CT of the head without contrast. Using automated exposure control and adjustment of the mA and/or kV according to patient size, radiation dose was kept as low as reasonably achievable to ob tain optimal diagnostic quality images. DICOM format image data is available electronically for revi ew and comparison. FINDINGS: Cerebrum: There is a remote small infarct in the right frontal lobe measuring up to about 2 cm x 1.2 cm, stable. No intracranial mass, hemorrhage or shift. Posterior Fossa: The cerebellum and brainstem are intact. The 4th ventricle is midline. The cerebe llopontine angle is unremarkable. Extracranial: The visualized portion of the orbits is intact. Skull: The calvaria is intact. No evidence of skull fracture. CONCLUSION: 1. No acute findings. 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 . Electronically signed by: Adryan Barger MD 04/29/2018 3:18 PM EST
[2018-04-29] MEDS: Enoxaparin Inj 30 MG/0.3 ML Syringe SQ SCH (15:28)
--- NOTE | 2018-04-29 18:51 | P.PNNEU ---
Subjective Subjective Comments: Pt feels left sided strength is improving. ?? felt might have had another sz but none witnessed Active Medications: Active Medications Acetaminophen (Tylenol) 650 mg PO Q6H PRN PRN Reason: Pain 1-2 Albuterol (Ventolin Hfa Inh) 2 puff INH Q4H PRN PRN Reason: SHORTNESS OF BREATH Amlodipine Besylate (Norvasc) 10 mg PO DAILY [facility] Last Admin: 04/29/18 09:07 Dose: 10 mg Aspirin (Ecotrin) 81 mg PO DAILY [facility] Last Admin: 04/29/18 09:06 Dose: 81 mg Atorvastatin Calcium (Lipitor) 40 mg PO DAILY [facility] Last Admin: 04/29/18 09:06 Dose: 40 mg Bisacodyl (Dulcolax Supp) 10 mg RECTAL DAILY PRN PRN Reason: SEVERE CONSITIPATION Dextrose (D50w Vial) 50 ml IV.PUSH UNSCH PRN PRN Reason: PER HYPOGLYCEMIA PROTOCOL Docusate Sodium (Colace Liq) 50 mg PO BID [facility] Last Admin: 04/29/18 09:05 Dose: Not Given Enalaprilat (Vasotec Inj) 1.25 mg IV.PUSH Q6H PRN PRN Reason: SBP>160, DBP>90 Enoxaparin Sodium (Lovenox Inj) 30 mg SQ Q24H [facility] Last Admin: 04/29/18 15:28 Dose: 30 mg Furosemide (Lasix) 10 mg PO DAILY [facility] Last Admin: 04/29/18 09:07 Dose: 10 mg Glucagon (Glucagon Inj) 1 mg OTHER UNSCH PRN PRN Reason: for Hypoglycemia Protocol Hydrochlorothiazide (Hydrodiuril) 25 mg PO BID@0900,1800 [facility] Last Admin: 04/29/18 18:46 Dose: 25 mg Ibuprofen (Motrin) 800 mg PO TID PRN PRN Reason: Pain 3-10 Insulin Aspart (Novolog Insulin Correctional Sugar Inj) 0 unit SQ ACHS [facility]; Protocol Last Admin: 04/29/18 17:33 Dose: Not Given Lamotrigine (Lamictal) 25 mg PO BID [facility] Last Admin: 04/29/18 09:06 Dose: 25 mg Levetiracetam (Keppra) 1,000 mg PO BID [facility] Last Admin: 04/29/18 09:08 Dose: 1,000 mg Lisinopril (Prinivil) 2.5 mg PO DAILY [facility] Last Admin: 04/29/18 09:05 Dose: 2.5 mg Lorazepam (Ativan Inj) 1 mg IV.PUSH Q4H PRN PRN Reason: SEIZURES Meclizine HCl (Antivert) 25 mg PO BID PRN PRN Reason: Nausea Metformin HCl (Glucophage) 1,000 mg PO BID [facility] Last Admin: 04/29/18 09:08 Dose: 1,000 mg Nitroglycerin (Nitrostat Sl (Override)) 0.4 mg SL Q5M PRN PRN Reason: CHEST PAIN Ondansetron HCl (Zofran Odt) 4 mg PO Q6H PRN PRN Reason: Nausea Sennosides (Senokot) 17.2 mg PO Q12H PRN PRN Reason: Moderate Constipation Trazodone HCl (Desyrel) 150 mg PO [facility] Allergies/Adverse Reactions: Allergies Allergy/AdvReac Type Severity Reaction Status Date / Time iodine Allergy Anaphylaxis Verified 04/28/18 01:47 latex Allergy Anaphylaxis Verified 04/28/18 01:47 shellfish derived Allergy Anaphylaxis Verified 04/28/18 01:38 Physical Exam Vital signs: Vital Signs 04/28/18 19:03 04/29/18 00:00 04/29/18 03:34 Temperature 98.1 F 97.8 F 97.7 F Pulse Rate 72 68 57 L Respiratory Rate 18 18 18 Blood Pressure 122/77 107/64 109/59 L Pulse Oximetry 96 100 99 04/29/18 08:00 04/29/18 12:00 04/29/18 15:40 Temperature 97.4 F L 97.4 F L 98.2 F Pulse Rate 63 74 65 Respiratory Rate 20 20 20 Blood Pressure 115/63 116/73 116/60 Pulse Oximetry 98 97 97 Intake & Output 04/28/18 04/29/18 04/29/18 18:59 06:59 18:59 Intake Total 120 / 120 Output Total 450 / 450 Balance -330 / -330 Weight 104.326 kg Intake: Oral 120 / 120 Output: Urine 450 / 450 Other: # Voids 0 1 Date of Last Bowel Movement 04/26/18 04/26/18 Weight On Admission 107 kg - Routine Neurological Exam alert, speech normal CN intact MOTOR 4+/5 LUE and LLE Objective Radiology Results: CT today shows no acute change Laboratory Results - last 24 hr 04/28/18 04/29/18 04/29/18 22:09 05:59 05:59 Sodium 142 Potassium 3.3 L Chloride 105 Carbon Dioxide 28.9 Anion Gap 8 BUN 7 Creatinine 0.73 Estimated GFR Greater than 89 POC Glucose 85 Random Glucose 100 Hemoglobin A1c 5.1 Calcium 8.1 L Triglycerides 111 Cholesterol 136 LDL Cholesterol, Calc 64 HDL Cholesterol 49.6 Cholesterol/HDL Ratio 2.74 04/29/18 04/29/18 04/29/18 07:37 12:04 16:53 Sodium Potassium Chloride Carbon Dioxide Anion Gap BUN Creatinine Estimated GFR POC Glucose 98 99 102 Random Glucose Hemoglobin A1c Calcium Triglycerides Cholesterol LDL Cholesterol, Calc HDL Cholesterol Cholesterol/HDL Ratio Review/Management - Diagnosis (1) TIA (transient ischemic attack) Code(s): G45.9 - Transient cerebral ischemic attack, unspecified Status: Acute Current Visit: Yes (2) Seizure Code(s): R56.9 - Unspecified convulsions Status: Acute Current Visit: Yes - Review/Management Plan: It is possible that the increase in left sided weakness was a post ictal state related to sz--i.e. Todds Paralysis. He states he has baseline left sided weakness from prior stroke. Continue current anticonvulsant doses follow up hypercoag labs Pt state he was on low dose xarelto and asa at home. Will defer to medicine service regarding dosage of xarelto
[2018-04-29] MEDS: traZODone 50 MG Tablet PO SCH (20:43)
[2018-04-30] MEDS: Insulin NovoLOG Aspart Correctional Sugar Inj SQ SCH ×4 (08:17→21:31)
[2018-04-30] MEDS: Docusate Sodium Liq 100 MG/10 ML UDC PO SCH ×2 (08:59→21:31)
[2018-04-30] MEDS: Lisinopril 5 MG Tablet PO SCH (09:00)
[2018-04-30] MEDS: levETIRAcetam 250 MG Tablet PO SCH ×2 (09:01→21:30)
[2018-04-30] MEDS: amLODIPine 10 MG Tablet PO SCH (09:01)
[2018-04-30] MEDS: Furosemide 20 MG Tablet PO SCH (09:01)
[2018-04-30] MEDS: hydroCHLOROthiazide 25 MG Tablet PO SCH ×2 (09:02→18:29)
[2018-04-30] MEDS: lamoTRIgine 25 MG TABLET PO SCH ×2 (09:02→21:31)
--- NOTE | 2018-04-30 10:07 | P.PNIM ---
Subjective Interval history: Patient reports he is feeling about the same. Left-sided weakness is unchanged. He reports he was on Xarelto at some point but he was taken off for GI bleeding. Then reports he is not sure if he was taking it. Physical Exam Vital signs: Vital Signs 04/29/18 12:00 04/29/18 15:40 04/29/18 20:00 Temperature 97.4 F L 98.2 F 98.6 F Pulse Rate 74 65 67 Respiratory Rate 20 20 17 Blood Pressure 116/73 116/60 127/73 Pulse Oximetry 97 97 96 04/30/18 00:00 04/30/18 04:00 04/30/18 08:00 Temperature 97.6 F 98.4 F 97.5 F L Pulse Rate 69 64 67 Respiratory Rate 17 16 16 Blood Pressure 124/73 178/70 H 127/74 Pulse Oximetry 94 L 98 97 Intake & Output 04/29/18 04/30/18 04/30/18 18:59 06:59 18:59 Intake Total 120 / 120 Output Total 450 / 450 Balance -330 / -330 Intake: Oral 120 / 120 Output: Urine 450 / 450 Other: # Voids 1 Date of Last Bowel Movement 04/26/18 04/29/18 Narrative: GENERAL: Not in acute distress CARDIOVASCULAR: Regular rate and rhythm without murmurs, gallops, or rubs. RESPIRATORY: Clear to auscultation with normal respiratory effort. Breath sounds equal bilaterally. No use of accessory muscles of respiration. NEUROLOGICAL: Awake, alert, oriented 3. Left upper and lower extremities with 4 out of 5 strength. The rest of his extremities are 5 out of 5. PSYCHIATRIC: Normal mood, appropriate affect. Results - Labs CBC & Chem 7: 04/28/18 03:00 04/29/18 05:59 Laboratory Results - last 24 hr 04/29/18 04/29/18 04/29/18 05:59 12:04 16:53 POC Glucose 99 102 Hemoglobin A1c 5.1 04/29/18 04/30/18 20:36 08:08 POC Glucose 123 H 117 H Hemoglobin A1c - Imaging Impressions Head CT 04/29/18 00:00 CONCLUSION: 1. No acute findings. 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 . Assessment and Plan - Assessment (1) TIA (transient ischemic attack) Code(s): G45.9 - Transient cerebral ischemic attack, unspecified Status: Acute - Plan 58-year-old male with history of diabetes mellitus, hypertension previous CVA with new left-sided weakness and slurring of speech Rule out TIA-allegedly new sided weakness/slurring of speech that is getting better. - Patient reportedly has previous history of stroke. -Appreciate neurology following. -Continue aspirin and statin. keep on telemetry. -Patient reports that he was taking Xarelto in the past but this was discontinued due to GI bleeding. History is at times inconsistent. I called his PCPs office in [place] and was given a fax for release of information form to receive the records. Advised RN. History of seizures-reported breakthrough seizures. Apparently today, the patient reported to staff that he had another seizure. This was not witnessed. - Continue with increased dose of Keppra. Continue lamotrigine. -Appreciate neurology following. Repeat CAT scan is stable. Hypertension -Continue home medications including Norvasc, Lasix, hydrochlorothiazide, lisinopril Diabetes mellitus-continue metformin, sliding scale insulin Physical therapy following. Patient will need rehab. Case management following. DVT prophylaxis: Lovenox.
[2018-04-30] MEDS: Enoxaparin Inj 30 MG/0.3 ML Syringe SQ SCH (14:39)
[2018-04-30] MEDS ORDERED: Sodium Chloride 0.9% 2 ML Flush PRN IV.FLUSH (16:00)
--- NOTE | 2018-04-30 19:40 | MG ---
cc: Óscar Crook MD, PhD TEST NUMBER: [id number] TECHNIQUE: A 17-channel EEG. DESCRIPTION: Background rhythm is symmetrical alpha, frequency 8-9 Hz, amplitude 20-30 microvolts. No lateralizing features present. There is some slowing in the theta range, probably related to drowsiness. There is some sharp activity identified with phase reversal of the right hemisphere. Photic is normal. INTERPRETATION: Abnormal study. There is some sharp activity over the right suggesting the possibility of a seizure focus in that area. Óscar Crook MD, PhD KATHLEEN/maribell , 07:17 PM , 07:21 PM
[2018-04-30] MEDS: traZODone 50 MG Tablet PO SCH (21:29)
[2018-04-30] MEDS: Sodium Chloride 0.9% 2 ML Flush BID IV.FLUSH SCH (21:32)
[2018-05-01] MEDS: levETIRAcetam 250 MG Tablet PO SCH ×2 (11:05→21:14)
[2018-05-01] MEDS: amLODIPine 10 MG Tablet PO SCH ×2 (11:06→11:21)
[2018-05-01] MEDS: lamoTRIgine 25 MG TABLET PO SCH ×2 (11:07→21:15)
[2018-05-01] MEDS: Insulin NovoLOG Aspart Correctional Sugar Inj SQ SCH ×4 (11:19→21:15)
[2018-05-01] MEDS: Furosemide 20 MG Tablet PO SCH (11:19)
[2018-05-01] MEDS: Lisinopril 5 MG Tablet PO SCH (11:21)
[2018-05-01] MEDS: Sodium Chloride 0.9% 2 ML Flush BID IV.FLUSH SCH ×2 (11:22→23:09)
[2018-05-01] MEDS: Docusate Sodium Liq 100 MG/10 ML UDC PO SCH ×2 (13:36→21:15)
[2018-05-01] MEDS: hydroCHLOROthiazide 25 MG Tablet PO SCH ×2 (13:46→18:19)
--- NOTE | 2018-05-01 14:18 | P.PNIM ---
Subjective Interval history: Patient reports left sided weakness is unchanged. He has not been able to get in touch with his sister. No new seizures. Physical Exam Vital signs: Vital Signs 04/30/18 16:06 04/30/18 20:00 04/30/18 22:45 Temperature 97.3 F L 98.2 F Pulse Rate 73 74 74 Respiratory Rate 16 20 Blood Pressure 123/58 L 132/72 Pulse Oximetry 98 96 05/01/18 00:00 05/01/18 04:00 05/01/18 08:49 Temperature 98.1 F 97.9 F 98.4 F Pulse Rate 72 68 78 Respiratory Rate 18 20 18 Blood Pressure 122/64 110/62 127/57 L Pulse Oximetry 98 98 98 05/01/18 11:13 05/01/18 12:21 Temperature 98.5 F Pulse Rate 78 Respiratory Rate 20 Blood Pressure 126/69 126/60 Pulse Oximetry 96 Intake & Output 04/30/18 05/01/18 05/01/18 18:59 06:59 18:59 Other: Date of Last Bowel Movement 04/29/18 04/29/18 Narrative: GENERAL: Not in acute distress CARDIOVASCULAR: Regular rate and rhythm without murmurs, gallops, or rubs. RESPIRATORY: Clear to auscultation with normal respiratory effort. Breath sounds equal bilaterally. No use of accessory muscles of respiration. NEUROLOGICAL: Awake, alert, oriented 3. Left upper and lower extremities with 4 out of 5 strength. The rest of his extremities are 5 out of 5. PSYCHIATRIC: Normal mood, appropriate affect. Results - Labs CBC & Chem 7: 04/28/18 03:00 04/29/18 05:59 Laboratory Results - last 24 hr 04/30/18 05/01/18 05/01/18 18:10 08:50 12:43 POC Glucose 127 H 101 139 H Assessment and Plan - Assessment (1) TIA (transient ischemic attack) Code(s): G45.9 - Transient cerebral ischemic attack, unspecified Status: Acute - Plan 58-year-old male with history of diabetes mellitus, hypertension previous CVA with new left-sided weakness and slurring of speech Ruled out TIA-allegedly new sided weakness/slurring of speech that seems to be now at baseline. He does have history of previous stroke based on review of his old records from his PCP. -Appreciate neurology following. -Continue aspirin and statin. keep on telemetry. -Patient reports that he was taking Xarelto in the past but this was discontinued due to GI bleeding. History of seizures-breakthrough seizures. Patient currently has a vagus nerve stimulator. - Continue with increased dose of Keppra. Continue lamotrigine. -Appreciate neurology following. Repeat CAT scan is stable. Hypertension -Continue home medications including Norvasc, Lasix, hydrochlorothiazide, lisinopril Diabetes mellitus-continue metformin, sliding scale insulin Physical deconditioning and left-sided weakness: Physical therapy following. Patient need rehab. Case management following. DVT prophylaxis: Lovenox. Discharge Planning: Case management following. Unable to locate his sister. He came from [place]. Need placement. PT 7 days a week ordered.
[2018-05-01] MEDS: Enoxaparin Inj 30 MG/0.3 ML Syringe SQ SCH (16:11)
[2018-05-01] MEDS: traZODone 50 MG Tablet PO SCH (21:14)
[2018-05-02] MEDS: Insulin NovoLOG Aspart Correctional Sugar Inj SQ SCH ×4 (09:12→21:05)
[2018-05-02] MEDS: amLODIPine 10 MG Tablet PO SCH (09:41)
[2018-05-02] MEDS: Furosemide 20 MG Tablet PO SCH (09:42)
[2018-05-02] MEDS: Lisinopril 5 MG Tablet PO SCH (09:42)
[2018-05-02] MEDS: lamoTRIgine 25 MG TABLET PO SCH ×2 (09:42→21:05)
[2018-05-02] MEDS: levETIRAcetam 250 MG Tablet PO SCH ×2 (09:42→21:04)
[2018-05-02] MEDS: Docusate Sodium Liq 100 MG/10 ML UDC PO SCH ×2 (09:42→21:04)
[2018-05-02] MEDS: hydroCHLOROthiazide 25 MG Tablet PO SCH ×2 (09:45→17:50)
[2018-05-02] MEDS: Sodium Chloride 0.9% 2 ML Flush BID IV.FLUSH SCH ×2 (09:46→21:06)
--- NOTE | 2018-05-02 11:33 | P.PN ---
Subjective Interval history: Follow-up CVA with left-sided weakness. Complaining of bilateral shoulder pain with history of arthritis. No recent trauma. Discussed with nursing, PT reports patient may be malingering with his weakness. He also stutters Physical Exam Vital signs: Vital Signs 05/01/18 12:21 05/01/18 16:53 05/01/18 17:44 Temperature 98.5 F 98.8 F Pulse Rate 78 77 72 Respiratory Rate 20 20 Blood Pressure 126/60 138/63 Pulse Oximetry 96 100 05/02/18 00:00 05/02/18 04:00 05/02/18 07:28 Temperature 97.7 F 97.8 F 97.6 F Pulse Rate 75 75 68 Respiratory Rate 18 17 12 Blood Pressure 126/60 108/64 117/70 Pulse Oximetry 96 97 94 L Intake & Output 05/01/18 05/02/18 05/02/18 18:59 06:59 18:59 Other: Date of Last Bowel Movement 05/01/18 05/01/18 Narrative: GENERAL: Not in acute distress CARDIOVASCULAR: Regular rate and rhythm without murmurs, gallops, or rubs. RESPIRATORY: Clear to auscultation with normal respiratory effort. Breath sounds equal bilaterally. No use of accessory muscles of respiration. Musculoskeletal: No swelling or redness of the bilateral shoulders with full range of movements. NEUROLOGICAL: Awake, alert, oriented 3. Left upper and lower extremities with 4 out of 5 strength. The rest of his extremities are 5 out of 5. PSYCHIATRIC: Normal mood, appropriate affect. Results - Labs CBC & Chem 7: 04/28/18 03:00 04/29/18 05:59 Laboratory Results - last 24 hr 05/01/18 05/01/18 05/02/18 12:43 18:18 09:09 POC Glucose 139 H 111 H 106 - Procedures none Assessment and Plan - Assessment (1) TIA (transient ischemic attack) Code(s): G45.9 - Transient cerebral ischemic attack, unspecified Status: Acute - Plan 58-year-old male with history of diabetes mellitus, hypertension previous CVA with new left-sided weakness and slurring of speech Ruled out TIA-allegedly new sided weakness/slurring of speech that seems to be now at baseline. He does have history of previous stroke based on review of his old records from his PCP. -Appreciate neurology following. -Continue aspirin and statin. Keep on telemetry. -Patient reports that he was taking Xarelto in the past but this was discontinued due to GI bleeding. -PT and ST History of seizures-breakthrough seizures. Patient currently has a vagus nerve stimulator. - Continue with increased dose of Keppra. Continue lamotrigine. - Appreciate neurology following. Repeat CAT scan is stable. Hypertension -Continue home medications including Norvasc, Lasix, hydrochlorothiazide, lisinopril Diabetes mellitus-continue metformin, sliding scale insulin Physical deconditioning and left-sided weakness: Physical therapy following. Patient need rehab. Case management following. DVT prophylaxis: Lovenox. Discharge Planning: Case management following. Unable to locate his sister. He came from [place]. Need placement no accepting facility at this time. PT 7 days a week ordered.
[2018-05-02] MEDS: Enoxaparin Inj 30 MG/0.3 ML Syringe SQ SCH (16:37)
[2018-05-02] MEDS: traZODone 50 MG Tablet PO SCH (21:04)
[2018-05-03 07:32] VITALS: RESP 16
[2018-05-03] MEDS: Insulin NovoLOG Aspart Correctional Sugar Inj SQ SCH ×3 (09:32→16:51)
[2018-05-03] MEDS: Lisinopril 5 MG Tablet PO SCH (09:33)
[2018-05-03] MEDS: levETIRAcetam 250 MG Tablet PO SCH (09:33)
[2018-05-03] MEDS: lamoTRIgine 25 MG TABLET PO SCH (09:33)
[2018-05-03] MEDS: Docusate Sodium Liq 100 MG/10 ML UDC PO SCH (09:34)
[2018-05-03] MEDS: amLODIPine 10 MG Tablet PO SCH (09:34)
[2018-05-03] MEDS: Furosemide 20 MG Tablet PO SCH (09:34)
[2018-05-03] MEDS: Sodium Chloride 0.9% 2 ML Flush BID IV.FLUSH SCH (09:35)
[2018-05-03] MEDS ORDERED: Influenza (Quadrivalent) Vaccine 0.5 ML Syringe IM ONE (10:00)
--- NOTE | 2018-05-03 10:17 | P.PN ---
Subjective Interval history: Follow-up left-sided weakness. Patient appears to be malingering having inconsistent weakness of the left upper and lower extremities. Discussed with nursing and physical therapy, patient able to use left hand when patient is not aware of being watched. Also reports that he vomited last night but tolerated breakfast. Physical Exam Vital signs: Vital Signs 05/02/18 11:05 05/02/18 14:04 05/02/18 17:09 Temperature 98.3 F 98.5 F Pulse Rate 85 93 H 68 Respiratory Rate 18 20 Blood Pressure 119/67 103/58 L Pulse Oximetry 99 98 05/02/18 20:00 05/02/18 23:39 05/03/18 00:00 Temperature 98.5 F 97.8 F Pulse Rate 71 71 74 Respiratory Rate 18 18 Blood Pressure 109/57 L 98/60 L Pulse Oximetry 98 97 05/03/18 03:02 05/03/18 04:00 05/03/18 07:31 Temperature 98.3 F Pulse Rate 91 H 81 73 Respiratory Rate 20 16 Blood Pressure 98/64 L 109/65 Pulse Oximetry 96 98 Intake & Output 05/02/18 05/03/18 05/03/18 18:59 06:59 18:59 Other: Date of Last Bowel Movement 05/02/18 Narrative: GENERAL: Not in acute distress CARDIOVASCULAR: Regular rate and rhythm without murmurs, gallops, or rubs. RESPIRATORY: Clear to auscultation with normal respiratory effort. Breath sounds equal bilaterally. No use of accessory muscles of respiration. Musculoskeletal: No swelling or redness of the bilateral shoulders with full range of movements. NEUROLOGICAL: Awake, alert, oriented 3. Left upper and lower extremities with 4 out of 5 strength. The rest of his extremities are 5 out of 5. PSYCHIATRIC: Normal mood, appropriate affect. Results - Labs CBC & Chem 7: 04/28/18 03:00 04/29/18 05:59 Laboratory Results - last 24 hr 05/02/18 05/02/18 05/02/18 12:30 18:17 20:06 POC Glucose 99 97 149 H 05/03/18 08:05 POC Glucose 96 - Imaging ITS Impressions Carotid Doppler Study 04/28/18 00:00 CONCLUSION: 1. Right Internal Carotid Artery: Normal. No significant plaque or narrowing. 2. Left Internal Carotid Artery: Normal. No significant plaque or narrowing. Head CT 04/29/18 00:00 CONCLUSION: 1. No acute findings. 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 . - Procedures none Assessment and Plan - Assessment (1) TIA (transient ischemic attack) Code(s): G45.9 - Transient cerebral ischemic attack, unspecified Status: Acute - Plan 58-year-old male with history of diabetes mellitus, hypertension previous CVA with new left-sided weakness and slurring of speech Ruled out TIA-allegedly new sided weakness/slurring of speech likely post ictal that seems to be now at baseline. He does have history of previous stroke based on review of his old records from his PCP. -Appreciate neurology following. -Continue aspirin and statin. Keep on telemetry. -Patient reports that he was taking Xarelto in the past but this was discontinued due to GI bleeding. -PT and ST -He appears to be malingering with his neuro deficits History of seizures-breakthrough seizures. Patient currently has a vagus nerve stimulator. - Continue with increased dose of Keppra. Continue lamotrigine. - Appreciate neurology following. Repeat CAT scan is stable. Hypertension -Continue home medications including Norvasc, Lasix, hydrochlorothiazide, lisinopril Diabetes mellitus-continue metformin, sliding scale insulin Physical deconditioning and left-sided weakness: Physical therapy following. Patient need rehab but no accepting facility. Case management following. DVT prophylaxis: Lovenox. Discharge Planning: Case management following. Unable to locate his sister who has not returned calls. He came from [place]. Need placement no accepting facility at this time. PT 7 days a week ordered. He is medically stable for discharge
[2018-05-03] MEDS: hydroCHLOROthiazide 25 MG Tablet PO SCH (11:37)
[2018-05-03 12:14] VITALS: BP 136/80; PULSE 89; TEMP 97.5; O2SAT 96
[2018-05-03 13:16] LABS: Factor V Leiden Mutation Negative (Negative); Protein C Antigen 110 % (70-150); Protein S Antigen Free 108 % (65 - 160)
[2018-05-03] MEDS: Enoxaparin Inj 30 MG/0.3 ML Syringe SQ SCH (15:43)
--- NOTE | 2018-05-04 10:16 | P.DS ---
Date of admission: 05/01/18 14:17 Primary care physician: UNKNOWN Anticipated date of discharge: 05/03/18 Brief History from admission: This is a 58-year-old male with history of previous CVA, TIA, hypertension, diabetes mellitus brought in by the enforcement from the airport. He has baseline left sided weakness from a previous stroke and was living at home independently until about a week ago but has recently made a decision to stop living at home by himself because he started having worsening left-sided weakness and is more difficult for him to ambulate. Previously he used a walker or cane to get around but now it is even harder. He made a decision to go to rehab hospital in [place] to get stronger. Rehab has apparently been arranged by the sister. However during his flight, he noticed worsening slurring of speech and left-sided weakness apparently getting better. He arrived in the airport late and no one picked him up hence midline enforcement brought him to the hospital. He denies any fever, nausea, vomiting, headache but is a mild left arm pain during the flight. DS: Diagnosis - Discharge Diagnosis (1) TIA (transient ischemic attack) Status: Acute DS: Medications - Discharge Medications Prescriptions: levetiracetam [Keppra] 1,000 mg PO BID #240 tab DS: Summary Hospital Course: 58-year-old male with history of diabetes mellitus, hypertension previous CVA with new left-sided weakness and slurring of speech Ruled out TIA-allegedly new sided weakness/slurring of speech likely post ictal that seems to be now at baseline. He does have history of previous stroke based on review of his old records from his PCP. -Appreciate neurology following. -Continue aspirin and statin. Keep on telemetry. -Patient reports that he was taking Xarelto in the past but this was discontinued due to GI bleeding. -PT and ST -He appears to be malingering with his neuro deficits History of seizures-breakthrough seizures. Patient currently has a vagus nerve stimulator. - Continue with increased dose of Keppra. Continue lamotrigine. - Appreciate neurology following. Repeat CAT scan is stable. Hypertension -Continue home medications including Norvasc, Lasix, hydrochlorothiazide, lisinopril Diabetes mellitus-continue metformin, sliding scale insulin Physical deconditioning and left-sided weakness: Physical therapy following. Patient need rehab but no accepting facility. Case management following. DVT prophylaxis: Lovenox. Discharge Planning: Case management following. Unable to locate his sister who has not returned calls. He came from [place]. Needs placement no accepting facility at this time. PT 7 days a week ordered. He is medically stable for discharge - Time Spent with Patient Total time spent providing and/or coordinating discharge services: Greater than 30 minutes - Quality: VTE Deep Vein Thrombosis/Pulmonary Embolism Present on Admission: No Exam Vital signs: Vital Signs 05/03/18 12:00 Temperature 97.5 F L Pulse Rate 89 Respiratory Rate 16 Blood Pressure 136/80 Pulse Oximetry 96 Intake & Output 05/03/18 05/04/18 05/04/18 18:59 06:59 18:59 Output Total 800 / 800 Balance -800 / -800 Output: Urine 700 / 700 Emesis 100 / 100 Other: # Emeses 1 Narrative: GENERAL: Not in acute distress CARDIOVASCULAR: Regular rate and rhythm without murmurs, gallops, or rubs. RESPIRATORY: Clear to auscultation with normal respiratory effort. Breath sounds equal bilaterally. No use of accessory muscles of respiration. Musculoskeletal: No swelling or redness of the bilateral shoulders with full range of movements. NEUROLOGICAL: Awake, alert, oriented 3. Left upper and lower extremities with 4 out of 5 strength. The rest of his extremities are 5 out of 5. PSYCHIATRIC: Normal mood, appropriate affect. Results Procedures completed during hospitalization: none Labs on day of discharge: Labs from last 24 hours 05/03/18 05/03/18 04/29/18 15:40 12:55 05:59 Protein C Antigen 110 Free Protein S Antigen 108 Factor V Leiden Mutat Negative Factor V Leiden Interp . Fact V Leiden Review By See below POC Glucose 85 110 Anti-Cardiolipin IgG Ab <9.4 Anti-Cardiolipin IgM Ab <9.4 - Impressions ITS Impressions Carotid Doppler Study 04/28/18 00:00 CONCLUSION: 1. Right Internal Carotid Artery: Normal. No significant plaque or narrowing. 2. Left Internal Carotid Artery: Normal. No significant plaque or narrowing. Head CT 04/29/18 00:00 CONCLUSION: 1. No acute findings. 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 . Discharge Plan - Discharge Disposition Patient Disposition: Discharge Home - Discharge Condition Condition: Stable - Discharge Order Discharge Orders: Discharge Order (Routine); Ordered 05/03/18 Ordered By: Merlin Lemus - Discharge Details Discharge Comment: dc when cleared by PT - Physicians Team Primary Care Provider: UNKNOWN, Attending Provider: Merlin Lemus Other Providers: Óscar Crook MD, PhD ; [facility] ; [employer], [employer] ; [employer] [facility],[employer]
== END 2018-05-03 17:25 | disposition home or self-care (01) ==
LOC: NEPE 01:29 → NEDA 01:29 → NEPFCDU 16:13
PROVIDERS: ADMIT Internal Medicine; ATTEND Internal Medicine

== ENCOUNTER 2018-05-03 21:14 | Observation (INO) ==
[2018-05-03] MEDS ORDERED: levETIRAcetam 500 MG Tablet PO ONE (23:49)
--- NOTE | 2018-05-03 23:49 | ED ---
HPI General Chief Complaint: Seizure Stated Complaint: poss seziure Time Seen by Provider: 05/03/18 23:41 Source: patient Mode of arrival: ambulatory Limitations: no limitations History of Present Illness HPI Narrative: 58-year-old male patient with history of previous TIA, seizure, was released from the hospital at 5 PM, was waiting at the bus stop and he states that he had another seizure and that is why he came back in. He also complains of a 3 out of 10 substernal chest pain. He complains of a headache which he states he gets sometimes with seizures. He denies any shortness of breath, or other issues. He states that he last had his seizure medication this morning. Modifying Factors: None Associated Signs & Symptoms: Seizure Risk Factors: History of seizures Related Data Home Medications Medication Instructions Recorded Confirmed acetaminophen [Tylenol] 650 mg PO Q6H PRN 04/28/18 05/03/18 albuterol sulfate [Ventolin HFA] 2 puff INHALATION Q4-6H PRN 04/28/18 05/03/18 amlodipine 10 mg PO DAILY 04/28/18 05/03/18 aspirin [Aspir-81] 81 mg PO DAILY 04/28/18 05/03/18 atorvastatin 40 mg PO DAILY 04/28/18 05/03/18 docusate sodium 50 mg PO BID 04/28/18 05/03/18 furosemide [Lasix] 10 mg PO DAILY 04/28/18 05/03/18 hydrochlorothiazide 25 mg PO BID 04/28/18 05/03/18 ibuprofen 800 mg PO TID PRN 04/28/18 05/03/18 lamotrigine 25 mg PO BID 04/28/18 05/03/18 levetiracetam [Keppra] 750 mg PO BID 04/28/18 05/03/18 lisinopril 2.5 mg PO DAILY 04/28/18 05/03/18 meclizine 25 mg PO BID PRN 04/28/18 05/03/18 metformin 1,000 mg PO BID 04/28/18 05/03/18 nitroglycerin [Nitrostat] 0.4 mg SUBLINGUAL Q5-15M PRN 04/28/18 05/03/18 ondansetron [Zofran ODT] 4 mg PO Q6-8H PRN 04/28/18 05/03/18 trazodone 150 mg PO DAILY 04/28/18 05/03/18 Previous Rx's Medication Instructions Recorded levetiracetam [Keppra] 1,000 mg PO BID #240 tab 05/02/18 Allergies Allergy/AdvReac Type Severity Reaction Status Date / Time iodine Allergy Anaphylaxis Verified 05/03/18 22:38 latex Allergy Anaphylaxis Verified 05/03/18 22:38 shellfish derived Allergy Anaphylaxis Verified 05/03/18 22:38 Review of Systems ROS: all other systems reviewed are negative PMFSH History History Provided By: Patient Medical History Medical History Diabetes (Acute) High cholesterol (Acute) Hypertension (Acute) Seizure (Acute) Stroke (Acute) TIA (transient ischemic attack) (Acute) Surgical History Surgical History H/O knee surgery (Acute) History of mandibular surgery (Acute) Social History Social History Substance History: No History of Abuse Second Hand Smoke Exposure: No Smoking Status: Never smoker How Often Do You Have a Drink Containing Alcohol: Never Recent Travel in [facility] within the Last 8 Weeks: No Recent Out of Country Travel within the Last 8 Weeks: No Exam Narrative Exam Narrative: GENERAL: Well-developed middle-age -[place] male patient currently in no acute distress. Awake and oriented x3. SKIN: Focused skin assessment warm/dry. HEAD: Atraumatic. Normocephalic. EYES: Pupils equal and round. No scleral icterus. No injection or drainage. ENT: No nasal bleeding or discharge. Mucous membranes pink and moist. NECK: Trachea midline. No JVD. CARDIOVASCULAR: Regular rate and rhythm. No murmur appreciated. RESPIRATORY: No accessory muscle use. Clear to auscultation. Breath sounds equal bilaterally. GASTROINTESTINAL: Abdomen soft, non-tender, nondistended. Hepatic and splenic margins not palpable. MUSCULOSKELETAL: No obvious deformities. No clubbing. No cyanosis. No edema. NEUROLOGICAL: Awake and alert. No obvious cranial nerve deficits. Motor grossly within normal limits. Stuttering speech. PSYCHIATRIC: Appropriate mood and affect; insight and judgment normal. Course Initial Documented Vital Signs Temperature 98.1 F 05/03/18 22:31 Pulse Rate 110 H 05/03/18 22:31 Respiratory Rate 20 05/03/18 22:31 Blood Pressure 128/76 05/03/18 22:31 Pulse Oximetry 98 05/03/18 22:31 Last Documented Vital Signs Temperature 98.1 F 05/03/18 22:31 Pulse Rate 81 05/04/18 01:50 Respiratory Rate 20 05/04/18 01:50 Blood Pressure 131/69 05/04/18 01:50 Pulse Oximetry 98 05/04/18 01:50 Medical Decision Making MDM Narrative Medical decision making narrative: Lab work was fairly unremarkable. Troponins are negative. EKG did show some nonspecific T wave changes. And at this point , my plan would be to admit the patient for further evaluation. Patient had been given a Keflex which is his usual home evening dose. Case is discussed with Dr. Awad for admission. Medical Screen Exam Complete: Yes Emergency Medical Condition: Yes Differential Diagnosis Differential Diagnosis: Breakthrough seizures versus malingering versus dysrhythmias versus electrolyte abnormalities Lab Data Result diagrams: 05/04/18 00:11 05/04/18 00:11 Lab Results 05/04/18 05/04/18 Range/Units 00:11 00:11 WBC 7.9 (4.0-11.0) th/mm3 RBC 5.17 (4.50-5.90) mil/mm3 Hgb 16.7 (13.0-17.0) gm/dL Hct 48.6 (39.0-51.0) % MCV 94.0 (80.0-100.0) fL MCH 32.3 (27.0-34.0) pg MCHC 34.4 (32.0-36.0) % RDW 12.1 (11.6-17.2) % Plt Count 278 (150-450) th/mm3 MPV 7.7 (7.0-11.0) fL Neut % (Auto) 59.3 (16.0-70.0) % Lymph % (Auto) 31.0 (9.0-44.0) % [place] % (Auto) 8.5 H (0.0-8.0) % Eos % (Auto) 0.3 (0.0-4.0) % Baso % (Auto) 0.9 (0.0-2.0) % Neut # (Auto) 4.7 (1.8-7.7) th/mm3 Lymph # (Auto) 2.4 (1.0-4.8) th/mm3 [place] # (Auto) 0.7 (0.0-0.9) th/mm3 Eos # (Auto) 0.0 (0.0-0.4) th/mm3 Baso # (Auto) 0.1 (0.0-0.2) th/mm3 WBC Differential . Differential Comment Auto diff final Sodium 137 (136-145) meq/L Potassium 4.1 (3.5-5.1) meq/L Chloride 98 (98-107) meq/L Carbon Dioxide 28.7 (21.0-32.0) meq/L Anion Gap 10 (5-15) meq/L BUN 17 (7-18) mg/dL Creatinine 1.32 H (0.60-1.30) mg/dL Estimated GFR 67 L (>89) mL/min Random Glucose 85 (74-106) mg/dL Calcium 9.2 (8.5-10.1) mg/dL Magnesium 1.9 (1.5-2.5) mg/dL Total Bilirubin 1.0 (0.2-1.0) mg/dL AST 57 H (15-37) U/L ALT 38 (12-78) U/L Alkaline Phosphatase 118 H (45-117) U/L Troponin I Less than 0.02 L (0.02-0.05) ng/mL Total Protein 8.4 H (6.4-8.2) g/dL Albumin 4.1 (3.4-5.0) g/dL Imaging Data Attestation: I personally reviewed and interpreted this imaging study as follows : Radiologist's impression: Chest X-Ray 05/03/18 23:44 CONCLUSION: No evidence of acute cardiopulmonary disease. ECG Data Attestation: I personally reviewed and interpreted this ECG as follows: Interpretation: EKG shows sinus rhythm at a rate of 96 bpm with left atrial enlargement and a T wave inversion notable in V5 V6. No acute ST elevations identified. Discharge Plan Discharge Disposition Patient Disposition: 30 Still Patient Discharge Condition Condition: Stable Discharge Details Anticipated Discharge Date: 05/04/18 Diagnosis: Seizure, Atypical chest pain Physicians Team ED Provider: [place] Primary Care Provider: UNKNOWN, Attending Provider: Enedelia Awad Discharge Interventions Interventions: Vital Signs Last Done: 05/04/18 01:50 Status ED Status: Admitted Observation Patient
--- NOTE | 2018-05-04 00:12 | XR ---
EXAM DATE: 05/03/2018 11:59 PM EST AGE/SEX: 58 years / Male INDICATIONS: Chest pressure today. CLINICAL DATA: This is the patient's initial encounter. Patient reports that signs and symptoms have been present for 1 day and indicates a pain score of 0/10. MEDICAL/SURGICAL HISTORY: . Diabetes. High Cholesterol. Hypertension. Seizure. StrokeTIA . Kne e surgery Mandibular surgery COMPARISON: No prior exams available for comparison. FINDINGS: A single AP view of the chest demonstrates the lungs to be symmetrically aerated without evidence of mass, infiltrate or effusion. The cardiomediastinal contours are unremarkable. Osseous structures a re intact. Nerve stimulator projects over the left lateral chest. CONCLUSION: No evidence of acute cardiopulmonary disease. Electronically signed by: Sherwin Maldonado MD 05/04/2018 12:11 AM EST
[2018-05-04 00:29] LABS: Baso # (Auto) 0.1 th/mm3 (0.0-0.2); Baso % (Auto) 0.9 % (0.0-2.0); Eos % (Auto) 0.3 % (0.0-4.0); Hematocrit 48.6 % (39.0-51.0); Hemoglobin 16.7 gm/dL (13.0-17.0); Lymph # (Auto) 2.4 th/mm3 (1.0-4.8); Mean Corpuscular HGB Conc 34.4 % (32.0-36.0); Mean Corpuscular Hemoglobin 32.3 pg (27.0-34.0); Mean Platelet Volume 7.7 fL (7.0-11.0); Mono # (Auto) 0.7 th/mm3 (0.0-0.9); Mono % (Auto) 8.5 % (0.0-8.0); Neut # (Auto) 4.7 th/mm3 (1.8-7.7); Neut % (Auto) 59.3 % (16.0-70.0); Platelet Count 278 th/mm3 (150-450); Red Blood Count 5.17 mil/mm3 (4.50-5.90); Red Cell Distribution Width 12.1 % (11.6-17.2); White Blood Count 7.9 th/mm3 (4.0-11.0)
[2018-05-04 00:43] LABS: Alkaline Phosphatase 118 U/L (45-117); Total Protein 8.4 g/dL (6.4-8.2)
[2018-05-04 01:04] LABS: Alanine Aminotransferase 38 U/L (12-78); Albumin 4.1 g/dL (3.4-5.0); Anion Gap 10 meq/L (5-15); Aspartate Aminotransferase 57 U/L (15-37); Blood Urea Nitrogen 17 mg/dL (7-18); Calcium 9.2 mg/dL (8.5-10.1); Carbon Dioxide 28.7 meq/L (21.0-32.0); Chloride 98 meq/L (98-107); Glomerular Filtration Rate 67 mL/min (>89); Glucose,Random 85 mg/dL (74-106); Magnesium 1.9 mg/dL (1.5-2.5); Sodium 137 meq/L (136-145)
[2018-05-04 01:07] LABS: Potassium 4.1 meq/L (3.5-5.1)
[2018-05-04] MEDS ORDERED: Acetaminophen 500 MG Tablet PO PRN (02:57)
[2018-05-04] MEDS ORDERED: Dextrose 50% in Water 50 ML Vial IV.PUSH PRN (03:04)
[2018-05-04] MEDS ORDERED: Sodium Chloride 0.9% 2 ML Flush PRN IV.FLUSH (03:09)
[2018-05-04] MEDS: Insulin NovoLOG Aspart Correctional Sugar Inj SQ SCH ×4 (08:10→21:34)
[2018-05-04] MEDS ORDERED: Sodium Chloride 0.9% 2 ML Flush BID IV.FLUSH SCH (09:00)
[2018-05-04] MEDS ORDERED: lamoTRIgine 25 MG TABLET PO SCH (09:00)
[2018-05-04] MEDS ORDERED: Furosemide 20 MG Tablet PO SCH (09:00)
[2018-05-04] MEDS ORDERED: LEVETIRACETAM 750 MG PO SCH (09:00)
[2018-05-04] MEDS: Docusate Sodium Liq 100 MG/10 ML UDC PO SCH ×2 (11:21→21:34)
[2018-05-04] MEDS: amLODIPine 10 MG Tablet PO SCH (11:22)
[2018-05-04] MEDS: levETIRAcetam 500 MG Tablet PO SCH ×2 (11:22→21:35)
[2018-05-04] MEDS: Famotidine 20 MG Tablet PO SCH ×2 (11:24→21:34)
[2018-05-04] MEDS: Lisinopril 5 MG Tablet PO SCH (11:24)
[2018-05-04 11:49] LABS: Creatine Kinase 149 U/L (39-308)
--- NOTE | 2018-05-04 11:55 | P.HP ---
History of Present Illness Primary Care Physician: UNKNOWN Chief Complaint: Seizure History of Present Illness: This is a 58-year-old male with a history of TIA/CVA, seizure, diabetes mellitus , hyperlipidemia and hypertension. Patient was just discharged yesterday after being hospitalized for seizure breakthrough. His antiepileptic drug Keppra was increased to thousand milligrams twice a day. He was stable with no seizure recurrence and was discharged. Patient states that while waiting at the bus stop, he had a seizure witnessed by railroad police who brought him to the emergency department. I cannot find any documentation to support this claim. He also reports that because of the seizure he fell and hit his chest against a bench. Since then has been having chest discomfort worse with activity. Chest x-ray independently reviewed by me with no acute cardiopulmonary disease. All other systems reviewed negative Review of Systems All other systems reviewed negative except as stated in HPI [facility] - History History Provided By: Patient - Medical History Medical History: Medical History (Last Reviewed 05/04/18 @ 13:20 by Merlin Lemus MD) Diabetes High cholesterol Hypertension Seizure Stroke TIA (transient ischemic attack) - Surgical History Surgical History: Surgical History (Last Reviewed 05/04/18 @ 13:20 by Merlin Lemus MD) H/O knee surgery History of mandibular surgery - Family History Family History: Family History (Last Updated 05/04/18 @ 13:21 by Merlin Lemus MD) Other Family history of acute myocardial infarction - Social History I have reviewed the patient's Social History: Yes - Tobacco History Second Hand Smoke Exposure: No Smoking Status: Never smoker - Alcohol History How Often Do You Have a Drink Containing Alcohol: Never - Substance Use History Substance History: No History of Abuse - Travel History Recent Travel in the [place] Within the Last 8 Weeks: Yes Recent Travel Out of the Country Within the Last 8 Weeks: No - Immunization History Tetanus Immunization: Unsure Medications and Allergies Active Medications: Active Medications Acetaminophen (Tylenol) 500 mg PO Q4H PRN PRN Reason: HEADACHE Albuterol (Ventolin Hfa Inh) 2 puff INH Q4H PRN PRN Reason: SHORTNESS OF BREATH Amlodipine Besylate (Norvasc) 10 mg PO DAILY [facility] Last Admin: 05/04/18 11:22 Dose: 10 mg Aspirin (Ecotrin) 325 mg PO DAILY [facility] Atorvastatin Calcium (Lipitor) 40 mg PO DAILY [facility] Last Admin: 05/04/18 11:26 Dose: Not Given Dextrose (D50w Vial) 50 ml IV.PUSH UNSCH PRN PRN Reason: PER HYPOGLYCEMIA PROTOCOL Docusate Sodium (Colace Liq) 50 mg PO BID [facility] Last Admin: 05/04/18 11:21 Dose: Not Given Famotidine (Pepcid) 20 mg PO BID [facility] Last Admin: 05/04/18 11:24 Dose: 20 mg Furosemide (Lasix) 10 mg PO DAILY [facility] Last Admin: 05/04/18 11:26 Dose: Not Given Glucagon (Glucagon Inj) 1 mg OTHER PRN PRN PRN Reason: for Hypoglycemia Protocol Insulin Aspart (Novolog Insulin Correctional Sugar Inj) 0 unit SQ ACHS [facility]; Protocol Last Admin: 05/04/18 08:10 Dose: Not Given Lamotrigine (Lamictal) 25 mg PO BID [facility] Last Admin: 05/04/18 11:25 Dose: 25 mg Levetiracetam (Keppra) 1,000 mg PO BID [facility] Last Admin: 05/04/18 11:22 Dose: 1,000 mg Lisinopril (Prinivil) 2.5 mg PO DAILY [facility] Last Admin: 05/04/18 11:24 Dose: 2.5 mg Meclizine HCl (Antivert) 25 mg PO BID PRN PRN Reason: Nausea Miscellaneous (Pill Splitter) 1 each OTHER UNSCH PRN PRN Reason: PILL SPIT Nitroglycerin (Nitrostat Sl) 0.4 mg SL Q5M PRN PRN Reason: ANGINA Sodium Chloride (Ns Flush) 2 ml IV.FLUSH BID [facility] Last Admin: 05/04/18 11:25 Dose: 2 ml Sodium Chloride (Ns Flush) 2 ml IV.FLUSH PRN PRN PRN Reason: FLUSH AFTER USING IV ACCESS Trazodone HCl (Desyrel) [address] [facility] Allergies Allergy/AdvReac Type Severity Reaction Status Date / Time iodine Allergy Anaphylaxis Verified 05/03/18 22:38 latex Allergy Anaphylaxis Verified 05/03/18 22:38 shellfish derived Allergy Anaphylaxis Verified 05/03/18 22:38 Home Medications Medication Instructions Recorded Confirmed Type acetaminophen [Tylenol] 650 mg PO Q6H PRN 04/28/18 05/03/18 History albuterol sulfate [Ventolin HFA] 2 puff INHALATION Q4-6H PRN 04/28/18 05/03/18 History amlodipine 10 mg PO DAILY 04/28/18 05/03/18 History aspirin [Aspir-81] 81 mg PO DAILY 04/28/18 05/03/18 History atorvastatin 40 mg PO DAILY 04/28/18 05/03/18 History docusate sodium 50 mg PO BID 04/28/18 05/03/18 History furosemide [Lasix] 10 mg PO DAILY 04/28/18 05/03/18 History hydrochlorothiazide 25 mg PO BID 04/28/18 05/03/18 History ibuprofen 800 mg PO TID PRN 04/28/18 05/03/18 History lamotrigine 25 mg PO BID 04/28/18 05/03/18 History levetiracetam [Keppra] 750 mg PO BID 04/28/18 05/03/18 History lisinopril 2.5 mg PO DAILY 04/28/18 05/03/18 History meclizine 25 mg PO BID PRN 04/28/18 05/03/18 History metformin 1,000 mg PO BID 04/28/18 05/03/18 History nitroglycerin [Nitrostat] 0.4 mg SUBLINGUAL Q5-15M PRN 04/28/18 05/03/18 History ondansetron [Zofran ODT] 4 mg PO Q6-8H PRN 04/28/18 05/03/18 History trazodone 150 mg PO DAILY 04/28/18 05/03/18 History Exam Vital signs: Vital Signs 05/03/18 22:31 05/03/18 23:55 05/04/18 01:45 Temperature 98.1 F Pulse Rate 110 H Respiratory Rate 20 Blood Pressure 128/76 Pulse Oximetry 98 98 98 05/04/18 01:50 05/04/18 04:00 05/04/18 07:29 Temperature 98.0 F 97.9 F Pulse Rate 81 82 87 Respiratory Rate 20 16 18 Blood Pressure 131/69 132/62 137/74 Pulse Oximetry 98 100 94 L 05/04/18 11:24 Temperature 97.8 F Pulse Rate 84 Respiratory Rate 18 Blood Pressure 131/75 Pulse Oximetry 100 Intake & Output 05/03/18 05/04/18 05/04/18 18:59 06:59 18:59 Weight 109.316 kg Other: Weight On Admission 185.42 kg Narrative: GENERAL: Well-developed, well-nourished in no distress SKIN: Warm and dry. HEAD: Atraumatic. Normocephalic. EYES: Pupils equal and round. No scleral icterus. No injection or drainage. ENT: No nasal bleeding or discharge. Mucous membranes pink and moist. NECK: Trachea midline. No JVD. CARDIOVASCULAR: Regular rate and rhythm. No chest wall tenderness RESPIRATORY: No accessory muscle use. Clear to auscultation. Breath sounds equal bilaterally. GASTROINTESTINAL: Abdomen soft, non-tender, nondistended. MUSCULOSKELETAL: Extremities without clubbing, cyanosis, or edema. No obvious deformities. NEUROLOGICAL: Awake and alert. No obvious cranial nerve deficits. Mild weakness of the left upper and left lower extremities. He stutters PSYCHIATRIC: Appropriate mood and affect; insight and judgment normal. Results - Labs CBC & Chem 7: 05/04/18 00:11 05/04/18 00:11 Labs: Laboratory Results - last 24 hr 05/04/18 05/04/18 05/04/18 00:11 00:11 07:47 WBC 7.9 RBC 5.17 Hgb 16.7 Hct 48.6 MCV 94.0 MCH 32.3 MCHC 34.4 RDW 12.1 Plt Count 278 MPV 7.7 Neut % (Auto) 59.3 Lymph % (Auto) 31.0 [place] % (Auto) 8.5 H Eos % (Auto) 0.3 Baso % (Auto) 0.9 Neut # (Auto) 4.7 Lymph # (Auto) 2.4 [place] # (Auto) 0.7 Eos # (Auto) 0.0 Baso # (Auto) 0.1 WBC Differential . Differential Comment Auto diff final Sodium 137 Potassium 4.1 Chloride 98 Carbon Dioxide 28.7 Anion Gap 10 BUN 17 Creatinine 1.32 H Estimated GFR 67 L POC Glucose 85 Random Glucose 85 Calcium 9.2 Magnesium 1.9 Total Bilirubin 1.0 AST 57 H ALT 38 Alkaline Phosphatase 118 H Total Creatine Kinase Troponin I Less than 0.02 L Total Protein 8.4 H Albumin 4.1 05/04/18 11:09 WBC RBC Hgb Hct MCV MCH MCHC RDW Plt Count MPV Neut % (Auto) Lymph % (Auto) [place] % (Auto) Eos % (Auto) Baso % (Auto) Neut # (Auto) Lymph # (Auto) [place] # (Auto) Eos # (Auto) Baso # (Auto) WBC Differential Differential Comment Sodium Potassium Chloride Carbon Dioxide Anion Gap BUN Creatinine Estimated GFR POC Glucose Random Glucose Calcium Magnesium Total Bilirubin AST ALT Alkaline Phosphatase Total Creatine Kinase 149 Troponin I Less than 0.02 L Total Protein Albumin - Imaging Impressions Chest X-Ray 05/03/18 23:44 CONCLUSION: No evidence of acute cardiopulmonary disease. Caprini VTE Risk Assessment Caprini VTE Risk Assessment: Moderate/High Risk (score >= 2) Caprini Risk Assessment Model: Point Value = 1 Point Value = 2 Point Value = 3 Point Value = 5 Age 41-60 Minor surgery BMI > 25 kg/m2 Swollen legs Varicose veins or History of unexplained or recurrent spontaneous Oral contraceptives or hormone replacement Sepsis (< 1 month) Serious lung disease, including pneumonia (< 1 month) Abnormal pulmonary function Acute myocardial infarction Congestive heart failure (< 1 month) History of inflammatory bowel disease Medical patient at bed rest Age 61-74 Arthroscopic surgery Major open surgery (> 45 min) Laparoscopic surgery (> 45 min) Malignancy Confined to bed (> 72 hours) Immobilizing plaster cast Central venous access Age >= 75 History of VTE Family history of VTE Factor V Leiden Prothrombin [id number] Lupus anticoagulant Anticardiolipin antibodies Elevated serum homocysteine Heparin-induced thrombocytopenia Other congenital or acquired thrombophilia Stroke (< 1 month) Elective arthroplasty Hip, pelvis, or leg fracture Acute spinal cord injury (< 1 month) Prophylaxis Regimen: Total Risk Factor Score Risk Level Prophylaxis Regimen 0-1 Low Early ambulation 2 Moderate Order ONE of the following: *Sequential Compression Device (SCD) *Heparin 5000 units SQ BID 3-4 Higher Order ONE of the following medications: *Heparin 5000 units SQ TID *Enoxaparin/Lovenox 40 mg SQ daily (WT < 150 kg, CrCl > 30 mL/min) *Enoxaparin/Lovenox 30 mg SQ daily (WT < 150 kg, CrCl > 10-29 mL/min) *Enoxaparin/Lovenox 30 mg SQ BID (WT < 150 kg, CrCl > 30 mL/min) AND/OR *Sequential Compression Device (SCD) 5 or more Highest Order ONE of the following medications: *Heparin 5000 units SQ TID (Preferred with Epidurals) *Enoxaparin/Lovenox 40 mg SQ daily (WT < 150 kg, CrCl > 30 mL/min) *Enoxaparin/Lovenox 30 mg SQ daily (WT < 150 kg, CrCl > 10-29 mL/min) *Enoxaparin/Lovenox 30 mg SQ BID (WT < 150 kg, CrCl > 30 mL/min) AND *Sequential Compression Device (SCD) Assessment and Plan - Plan This is a 58-year-old male with a history of TIA/CVA, seizure, diabetes mellitus , hyperlipidemia and hypertension. He returns to the emergency department because of recurrent seizure and chest discomfort after hitting his chest against a bench when he fell during seizure. Denies any other injuries. Chest x -ray with no acute cardiopulmonary disease. Seizure breakthrough. Continue Keppra with seizure precautions. Follow-up EEG and consult neurology. Check UDS Chest pain likely secondary to trauma. He is ruling out for LA. Chest x-ray without acute cardiopulmonary disease. EKG independently reviewed by me with sinus rhythm T changes in the inferolateral leads no signs of from previous. Recent echocardiogram showed ejection fraction 55% with no ventricular wall dysfunction. Mild AST elevation. Will hold Lipitor for now Acute kidney injury. Will hold diuretics and repeat BMP in the morning. Check UA DVT prophylaxis with subcu heparin Discharge Planning: Home when cleared by neurology. I am suspecting this patient is malingering discussed with case management
[2018-05-04 13:22] LABS: Creatine Kinase 124 U/L (39-308)
--- NOTE | 2018-05-04 14:31 | ECG ---
Date Performed: 05/04/2018 Time Performed: 06:34:30 PTAGE: 58 years EKG: Sinus rhythm POSSIBLE LEFT ATRIAL ENLARGEMENT MODERATE T-WAVE ABNORMALITY, CONSIDER LATERAL ISCHEMIA ABNORMAL ECG Since the PREVIOUS TRACING , no significant change noted PREVIOUS TRACIN05/04/2018 00.57 DOCTOR: Tamela Vicente Interpretating Date/Time 05/04/2018 14:27:42
--- NOTE | 2018-05-04 14:32 | ECG ---
Date Performed: 05/04/2018 Time Performed: 00:57:18 PTAGE: 58 years EKG: Sinus rhythm POSSIBLE LEFT ATRIAL ENLARGEMENT ST DEVIATION AND MODERATE T-WAVE ABNORMALITY, CONSIDER LATERAL ISCH EMIA ST DEVIATION AND MODERATE T-WAVE ABNORMALITY, CONSIDER INFERIOR ISCHEMIA ABNORMAL ECG Since the PREVIOUS TRACING , no significant change noted PREVIOUS TRACIN04/28/2018 01.49 DOCTOR: Tamela Vicente Interpretating Date/Time 05/04/2018 14:27:51
--- NOTE | 2018-05-04 17:29 | MG ---
cc: Femi Bocanegra MD EEG RECORD NUMBER: [id number] DESCRIPTION: 7-9 Hz activity, 20-50 microvolts. Good anterior to posterior gradient. Occasional background theta slowing, bitemporal theta bursts suggestive of drowsy state. There are tiny frontals that are transient; reduced driving with photic stimulation. Hyperventilation producing good buildup and no abnormal response. Single lead EKG showing sinus rhythm. INTERPRETATION: Awake and drowsy EEG. No seizure activity noted. Clinical correlation. MD JESSY Ortiz/katia , 05:07 PM , 05:13 PM
--- NOTE | 2018-05-04 18:44 | P.CONNEU ---
History of Present Illness Service: Neurology Primary Care Provider: UNKNOWN Chief Complaint: Seizure History of Present Illness: 58-year-old male admitted for possible seizure activity. States he had a seizure at the bus stop. States he has a history of known seizures he is on disability from the . During drills he states he hit his head until older traumatic brain injury and thereafter sustained seizures. is also had a stroke affecting his left side diagnosed in [place] where he is from. He states he recently relocated to seek a better life. States his been compliantly taking his seizure medication. He was recently discharged from the special care hospital of [facility] dose increased to 1000 twice daily. Seen for worsening left-sided weakness seizure activity. CT brain scan performed at that time demonstrated old right subcortical stroke. Unable to get an MRI scan due to VNS Denies any fever head or neck trauma. Review of Systems All other systems reviewed negative except as stated in [facility] - History History Provided By: Patient - Medical History Medical History: Medical History (Last Reviewed 05/04/18 @ 13:20 by Merlin Lemus MD) Diabetes High cholesterol Hypertension Seizure Stroke TIA (transient ischemic attack) - Surgical History Surgical History: Surgical History (Last Reviewed 05/04/18 @ 13:20 by Merlin Lemus MD) H/O knee surgery History of mandibular surgery - Family History Family History: Family History (Last Updated 05/04/18 @ 13:21 by Merlin Lemus MD) Other Family history of acute myocardial infarction - Tobacco History Second Hand Smoke Exposure: No Smoking Status: Never smoker - Alcohol History How Often Do You Have a Drink Containing Alcohol: Never - Substance Use History Substance History: No History of Abuse - Travel History Recent Travel in the [facility] Within the Last 8 Weeks: Yes Recent Travel Out of the Country Within the Last 8 Weeks: No - Immunization History Tetanus Immunization: Unsure Medications and Allergies Active Medications: Active Medications Acetaminophen (Tylenol) 500 mg PO Q4H PRN PRN Reason: HEADACHE Albuterol (Ventolin Hfa Inh) 2 puff INH Q4H PRN PRN Reason: SHORTNESS OF BREATH Amlodipine Besylate (Norvasc) 10 mg PO DAILY [facility] Last Admin: 05/04/18 11:22 Dose: 10 mg Aspirin (Ecotrin) 325 mg PO DAILY [facility] Atorvastatin Calcium (Lipitor) 40 mg PO DAILY [facility] Last Admin: 05/04/18 11:26 Dose: Not Given Dextrose (D50w Vial) 50 ml IV.PUSH UNSCH PRN PRN Reason: PER HYPOGLYCEMIA PROTOCOL Docusate Sodium (Colace Liq) 50 mg PO BID [facility] Last Admin: 05/04/18 11:21 Dose: Not Given Famotidine (Pepcid) 20 mg PO BID [facility] Last Admin: 05/04/18 11:24 Dose: 20 mg Furosemide (Lasix) 10 mg PO DAILY [facility] Last Admin: 05/04/18 11:26 Dose: Not Given Glucagon (Glucagon Inj) 1 mg OTHER PRN PRN PRN Reason: for Hypoglycemia Protocol Heparin Sodium (Porcine) (Heparin Inj) 5,000 units SQ Q12HR [facility] Insulin Aspart (Novolog Insulin Correctional Sugar Inj) 0 unit SQ ACHS [facility]; Protocol Last Admin: 05/04/18 16:55 Dose: Not Given Lamotrigine (Lamictal) 25 mg PO BID [facility] Last Admin: 05/04/18 11:25 Dose: 25 mg Levetiracetam (Keppra) 1,000 mg PO BID [facility] Last Admin: 05/04/18 11:22 Dose: 1,000 mg Lisinopril (Prinivil) 2.5 mg PO DAILY [facility] Last Admin: 05/04/18 11:24 Dose: 2.5 mg Meclizine HCl (Antivert) 25 mg PO BID PRN PRN Reason: Nausea Miscellaneous (Pill Splitter) 1 each OTHER UNSCH PRN PRN Reason: PILL SPIT Nitroglycerin (Nitrostat Sl) 0.4 mg SL Q5M PRN PRN Reason: ANGINA Sodium Chloride (Ns Flush) 2 ml IV.FLUSH BID [facility] Last Admin: 05/04/18 11:25 Dose: 2 ml Sodium Chloride (Ns Flush) 2 ml IV.FLUSH PRN PRN PRN Reason: FLUSH AFTER USING IV ACCESS Trazodone HCl (Desyrel) 150 mg PO [facility] Allergies Allergy/AdvReac Type Severity Reaction Status Date / Time iodine Allergy Anaphylaxis Verified 05/03/18 22:38 latex Allergy Anaphylaxis Verified 05/03/18 22:38 shellfish derived Allergy Anaphylaxis Verified 05/03/18 22:38 Home Medications Medication Instructions Recorded Confirmed Type acetaminophen [Tylenol] 650 mg PO Q6H PRN 04/28/18 05/03/18 History albuterol sulfate [Ventolin HFA] 2 puff INHALATION Q4-6H PRN 04/28/18 05/03/18 History amlodipine 10 mg PO DAILY 04/28/18 05/03/18 History aspirin [Aspir-81] 81 mg PO DAILY 04/28/18 05/03/18 History atorvastatin 40 mg PO DAILY 04/28/18 05/03/18 History docusate sodium 50 mg PO BID 04/28/18 05/03/18 History furosemide [Lasix] 10 mg PO DAILY 04/28/18 05/03/18 History hydrochlorothiazide 25 mg PO BID 04/28/18 05/03/18 History ibuprofen 800 mg PO TID PRN 04/28/18 05/03/18 History lamotrigine 25 mg PO BID 04/28/18 05/03/18 History levetiracetam [Keppra] 750 mg PO BID 04/28/18 05/03/18 History lisinopril 2.5 mg PO DAILY 04/28/18 05/03/18 History meclizine 25 mg PO BID PRN 04/28/18 05/03/18 History metformin 1,000 mg PO BID 04/28/18 05/03/18 History nitroglycerin [Nitrostat] 0.4 mg SUBLINGUAL Q5-15M PRN 04/28/18 05/03/18 History ondansetron [Zofran ODT] 4 mg PO Q6-8H PRN 04/28/18 05/03/18 History trazodone 150 mg PO DAILY 04/28/18 05/03/18 History Exam Vital signs: Vital Signs 05/03/18 22:31 05/03/18 23:55 05/04/18 01:45 Temperature 98.1 F Pulse Rate 110 H Respiratory Rate 20 Blood Pressure 128/76 Pulse Oximetry 98 98 98 05/04/18 01:50 05/04/18 04:00 05/04/18 07:29 Temperature 98.0 F 97.9 F Pulse Rate 81 82 87 Respiratory Rate 20 16 18 Blood Pressure 131/69 132/62 137/74 Pulse Oximetry 98 100 94 L 05/04/18 08:00 05/04/18 09:00 05/04/18 11:24 Temperature 97.8 F Pulse Rate 70 70 84 Respiratory Rate 18 Blood Pressure 131/75 Pulse Oximetry 100 05/04/18 16:00 Temperature 98.1 F Pulse Rate 81 Respiratory Rate 18 Blood Pressure 124/62 Pulse Oximetry 98 Intake & Output 05/03/18 05/04/18 05/04/18 18:59 06:59 18:59 Output Total 200 / 200 Balance -200 / -200 Weight 109.316 kg Output: Urine 200 / 200 Other: # Voids 1 Weight On Admission 185.42 kg Narrative: GENERAL: in NAD, SKIN: Warm and dry. HEAD: Atraumatic. Normocephalic. ENT: No nasal bleeding or discharge. Mucous membranes pink and moist. NECK: Trachea midline. No JVD. CARDIOVASCULAR: Regular rate and rhythm. RESPIRATORY: No accessory muscle use. GASTROINTESTINAL: Abdomen soft, non-tender, nondistended. NEUROLOGICAL: Awake alert oriented x3, stuttering speech at times, Remains intact no facial asymmetry tongue midline ill result for extremity gravity with mild left hemiparesis leg greater than arm. Left leg. 4-5 gait not assessed secondary to fall risk. No neglect PSYCHIATRIC: Appropriate mood and affect; insight and judgment normal. - Constitutional no acute distress - Routine HEENT Exam Head: Present: normocephalic Results - Labs CBC & Chem 7: 05/04/18 00:11 05/04/18 00:11 Labs: Laboratory Results - last 24 hr 05/04/18 05/04/18 05/04/18 00:11 00:11 07:47 WBC 7.9 RBC 5.17 Hgb 16.7 Hct 48.6 MCV 94.0 MCH 32.3 MCHC 34.4 RDW 12.1 Plt Count 278 MPV 7.7 Neut % (Auto) 59.3 Lymph % (Auto) 31.0 [place] % (Auto) 8.5 H Eos % (Auto) 0.3 Baso % (Auto) 0.9 Neut # (Auto) 4.7 Lymph # (Auto) 2.4 [place] # (Auto) 0.7 Eos # (Auto) 0.0 Baso # (Auto) 0.1 WBC Differential . Differential Comment Auto diff final Sodium 137 Potassium 4.1 Chloride 98 Carbon Dioxide 28.7 Anion Gap 10 BUN 17 Creatinine 1.32 H Estimated GFR 67 L POC Glucose 85 Random Glucose 85 Calcium 9.2 Magnesium 1.9 Total Bilirubin 1.0 AST 57 H ALT 38 Alkaline Phosphatase 118 H Total Creatine Kinase Troponin I Less than 0.02 L Total Protein 8.4 H Albumin 4.1 05/04/18 05/04/18 05/04/18 11:09 12:13 13:32 WBC RBC Hgb Hct MCV MCH MCHC RDW Plt Count MPV Neut % (Auto) Lymph % (Auto) [place] % (Auto) Eos % (Auto) Baso % (Auto) Neut # (Auto) Lymph # (Auto) [place] # (Auto) Eos # (Auto) Baso # (Auto) WBC Differential Differential Comment Sodium Potassium Chloride Carbon Dioxide Anion Gap BUN Creatinine Estimated GFR POC Glucose 92 Random Glucose Calcium Magnesium Total Bilirubin AST ALT Alkaline Phosphatase Total Creatine Kinase 149 124 Troponin I Less than 0.02 L Less than 0.02 L Total Protein Albumin 05/04/18 16:54 WBC RBC Hgb Hct MCV MCH MCHC RDW Plt Count MPV Neut % (Auto) Lymph % (Auto) [place] % (Auto) Eos % (Auto) Baso % (Auto) Neut # (Auto) Lymph # (Auto) [place] # (Auto) Eos # (Auto) Baso # (Auto) WBC Differential Differential Comment Sodium Potassium Chloride Carbon Dioxide Anion Gap BUN Creatinine Estimated GFR POC Glucose 80 Random Glucose Calcium Magnesium Total Bilirubin AST ALT Alkaline Phosphatase Total Creatine Kinase Troponin I Total Protein Albumin - Imaging Impressions Chest X-Ray 05/03/18 23:44 CONCLUSION: No evidence of acute cardiopulmonary disease. Review/Management - Diagnosis (1) Traumatic brain injury Code(s): S06.9X9A - Unspecified intracranial injury with loss of consciousness of unspecified duration, initial encounter Status: Acute Current Visit: Yes (2) Chronic arterial ischemic stroke Code(s): I69.30 - Unspecified sequelae of cerebral infarction Status: Acute Current Visit: Yes (3) Post-traumatic seizures Code(s): R56.1 - Post traumatic seizures Status: Acute Current Visit: Yes - Review/Management Plan: Possible recurrent seizure versus psychogenic. Recommendation Increase Lamictal to 50 twice daily EEG noted to be normal Continue Keppra Patient states he is looking for a home. Therefore, social issues may be playing a role Discharge planning Please have patient follow with his PCP, neurologist Behavioral modification and risk factor reduction. Weight loss, blood pressure control, blood sugar control, lipid control. Exercise No driving, operating any heavy machinery or dangerous machinery, swimming alone for at least 6 months of being seizure, spell free.
[2018-05-04 19:18] LABS: Bilirubin,Urine Negative (Negative); Clarity,Urine Hazy (Clear); Color,Urine Yellow (Yellw/Straw); Glucose,Urine (UA) Negative (Negative); Leukocyte Esterase,Urine Trace (Negative); Mucus,Urine Few /lpf (Occasional); Nitrite,Urine Negative (Negative); Specific Gravity,Urine 1.021 (1.002-1.035); Squamous Epithelial Cell,Urine 1 /hpf (0-5)
[2018-05-04 19:29] LABS: Amphetamine Screen,Urine Neg (Neg); Barbiturate Screen,Urine Neg (Neg); Cannabinoid Screen,Urine Neg (Neg); Cocaine Screen,Urine Neg (Neg)
[2018-05-04 19:31] LABS: Opiate Screen,Urine Neg (Neg)
[2018-05-04] MEDS ORDERED: traZODone 50 MG Tablet PO SCH (21:00)
[2018-05-04] MEDS: lamoTRIgine 25 MG TABLET PO SCH (21:37)
[2018-05-04] MEDS: Heparin - SQ 10,000 UNITS/ML Vial SQ SCH (21:37)
[2018-05-05 07:14] LABS: Baso # (Auto) 0.1 th/mm3 (0.0-0.2); Baso % (Auto) 1.2 % (0.0-2.0); Eos # (Auto) 0.1 th/mm3 (0.0-0.4); Eos % (Auto) 1.8 % (0.0-4.0); Hematocrit 43.5 % (39.0-51.0); Hemoglobin 14.9 gm/dL (13.0-17.0); Lymph # (Auto) 2.4 th/mm3 (1.0-4.8); Lymph % (Auto) 46.5 % (9.0-44.0); Mean Corpuscular HGB Conc 34.3 % (32.0-36.0); Mean Corpuscular Hemoglobin 32.2 pg (27.0-34.0); Mean Corpuscular Volume 93.8 fL (80.0-100.0); Mean Platelet Volume 7.3 fL (7.0-11.0); Mono # (Auto) 0.7 th/mm3 (0.0-0.9); Mono % (Auto) 12.4 % (0.0-8.0); Neut % (Auto) 38.1 % (16.0-70.0); Platelet Count 213 th/mm3 (150-450); Red Blood Count 4.64 mil/mm3 (4.50-5.90); Red Cell Distribution Width 11.9 % (11.6-17.2); White Blood Count 5.3 th/mm3 (4.0-11.0)
[2018-05-05 07:32] VITALS: BP 112/64; PULSE 75; RESP 16; TEMP 98; O2SAT 96
[2018-05-05 07:34] LABS: Alanine Aminotransferase 30 U/L (12-78); Albumin 3.5 g/dL (3.4-5.0); Anion Gap 9 meq/L (5-15); Aspartate Aminotransferase 20 U/L (15-37); Blood Urea Nitrogen 18 mg/dL (7-18); Calcium 8.4 mg/dL (8.5-10.1); Carbon Dioxide 30.2 meq/L (21.0-32.0); Chloride 99 meq/L (98-107); Glomerular Filtration Rate 87 mL/min (>89); Glucose,Random 105 mg/dL (74-106); Potassium 3.5 meq/L (3.5-5.1); Sodium 138 meq/L (136-145)
[2018-05-05 07:37] LABS: Alkaline Phosphatase 109 U/L (45-117); Total Protein 7.1 g/dL (6.4-8.2)
[2018-05-05] MEDS: amLODIPine 10 MG Tablet PO SCH (09:27)
[2018-05-05] MEDS: levETIRAcetam 500 MG Tablet PO SCH (09:27)
[2018-05-05] MEDS: lamoTRIgine 25 MG TABLET PO SCH (09:28)
[2018-05-05] MEDS: Docusate Sodium Liq 100 MG/10 ML UDC PO SCH (09:28)
[2018-05-05] MEDS: Heparin - SQ 10,000 UNITS/ML Vial SQ SCH (09:28)
[2018-05-05] MEDS: Famotidine 20 MG Tablet PO SCH (09:28)
[2018-05-05] MEDS: Insulin NovoLOG Aspart Correctional Sugar Inj SQ SCH (09:28)
[2018-05-05] MEDS: Lisinopril 5 MG Tablet PO SCH (09:29)
--- NOTE | 2018-05-05 12:34 | P.PN ---
Subjective Interval history: F/u sz. Doing ok no recurrence of sz dw CM and PT Physical Exam Vital signs: Vital Signs 05/04/18 16:00 05/04/18 19:58 05/05/18 04:00 Temperature 98.1 F 97.9 F 98.2 F Pulse Rate 81 54 L 72 Respiratory Rate 18 18 18 Blood Pressure 124/62 123/57 L 110/55 L Pulse Oximetry 98 94 L 97 05/05/18 07:31 Temperature 98.0 F Pulse Rate 75 Respiratory Rate 16 Blood Pressure 112/64 Pulse Oximetry 96 Intake & Output 05/04/18 05/05/18 05/05/18 18:59 06:59 18:59 Output Total 200 / 200 Balance -200 / -200 Output: Urine 200 / 200 Other: # Voids 1 Date of Last Bowel Movement 05/04/18 05/04/18 Narrative: GENERAL: Well-developed, well-nourished in no distress SKIN: Warm and dry. CARDIOVASCULAR: Regular rate and rhythm. No chest wall tenderness RESPIRATORY: No accessory muscle use. Clear to auscultation. Breath sounds equal bilaterally. GASTROINTESTINAL: Abdomen soft, non-tender, nondistended. MUSCULOSKELETAL: Extremities without clubbing, cyanosis, or edema. No obvious deformities. NEUROLOGICAL: Awake and alert. No obvious cranial nerve deficits. Mild weakness of the left upper and left lower extremities. Results - Labs CBC & Chem 7: 05/05/18 06:55 05/05/18 06:55 Laboratory Results - last 24 hr 05/04/18 05/04/18 05/04/18 12:13 13:32 16:54 WBC RBC Hgb Hct MCV MCH MCHC RDW Plt Count MPV Neut % (Auto) Lymph % (Auto) [place] % (Auto) Eos % (Auto) Baso % (Auto) Neut # (Auto) Lymph # (Auto) [place] # (Auto) Eos # (Auto) Baso # (Auto) WBC Differential Differential Comment Sodium Potassium Chloride Carbon Dioxide Anion Gap BUN Creatinine Estimated GFR POC Glucose 92 80 Random Glucose Calcium Magnesium Total Bilirubin AST ALT Alkaline Phosphatase Total Creatine Kinase 124 Troponin I Less than 0.02 L Total Protein Albumin Urine Color Urine Clarity Urine pH Ur Specific [place] Urine Protein Urine Glucose (UA) Urine Ketones Urine Occult Blood Urine Nitrate Urine Bilirubin Urine Urobilinogen Ur Leukocyte Esterase Urine WBC Ur Squamous Epith Cells Urine Mucus Micro UA Comment Ur Microscopic Review Urine Culture Comments Urine Opiates Screen Ur Barbiturates Screen Ur Amphetamines Screen U Benzodiazepines Scrn Urine Cocaine Screen U Cannabinoids Screen 05/04/18 05/04/18 05/04/18 18:00 18:00 21:42 WBC RBC Hgb Hct MCV MCH MCHC RDW Plt Count MPV Neut % (Auto) Lymph % (Auto) [place] % (Auto) Eos % (Auto) Baso % (Auto) Neut # (Auto) Lymph # (Auto) Spencer # (Auto) Eos # (Auto) Baso # (Auto) WBC Differential Differential Comment Sodium Potassium Chloride Carbon Dioxide Anion Gap BUN Creatinine Estimated GFR POC Glucose 130 H Random Glucose Calcium Magnesium Total Bilirubin AST ALT Alkaline Phosphatase Total Creatine Kinase Troponin I Total Protein Albumin Urine Color Yellow Urine Clarity Hazy H Urine pH 5.0 Ur Specific [place] 1.021 Urine Protein Negative Urine Glucose (UA) Negative Urine Ketones 80 or greater H Urine Occult Blood Negative Urine Nitrate Negative Urine Bilirubin Negative Urine Urobilinogen Less than 2 Ur Leukocyte Esterase Trace H Urine WBC 6 H Ur Squamous Epith Cells 1 Urine Mucus Few H Micro UA Comment Culture not ind Ur Microscopic Review Not Reportable Urine Culture Comments Culture not ind Urine Opiates Screen Neg Ur Barbiturates Screen Neg Ur Amphetamines Screen Neg U Benzodiazepines Scrn Neg Urine Cocaine Screen Neg U Cannabinoids Screen Neg 05/05/18 05/05/18 05/05/18 06:55 06:55 09:24 WBC 5.3 RBC 4.64 Hgb 14.9 Hct 43.5 MCV 93.8 MCH 32.2 MCHC 34.3 RDW 11.9 Plt Count 213 MPV 7.3 Neut % (Auto) 38.1 Lymph % (Auto) 46.5 H [place] % (Auto) 12.4 H Eos % (Auto) 1.8 Baso % (Auto) 1.2 Neut # (Auto) 2.0 Lymph # (Auto) 2.4 Spencer # (Auto) 0.7 Eos # (Auto) 0.1 Baso # (Auto) 0.1 WBC Differential . Differential Comment Auto diff final Sodium 138 Potassium 3.5 Chloride 99 Carbon Dioxide 30.2 Anion Gap 9 BUN 18 Creatinine 1.06 Estimated GFR 87 L POC Glucose 114 H Random Glucose 105 Calcium 8.4 L D Magnesium 2.0 Total Bilirubin 1.0 AST 20 ALT 30 Alkaline Phosphatase 109 Total Creatine Kinase Troponin I Total Protein 7.1 D Albumin 3.5 D Urine Color Urine Clarity Urine pH Ur Specific [place] Urine Protein Urine Glucose (UA) Urine Ketones Urine Occult Blood Urine Nitrate Urine Bilirubin Urine Urobilinogen Ur Leukocyte Esterase Urine WBC Ur Squamous Epith Cells Urine Mucus Micro UA Comment Ur Microscopic Review Urine Culture Comments Urine Opiates Screen Ur Barbiturates Screen Ur Amphetamines Screen U Benzodiazepines Scrn Urine Cocaine Screen U Cannabinoids Screen - Imaging ITS Impressions Chest X-Ray 05/03/18 23:44 CONCLUSION: No evidence of acute cardiopulmonary disease. - Procedures none Assessment and Plan - Plan This is a 58-year-old male with a history of TIA/CVA, seizure, diabetes mellitus , hyperlipidemia and hypertension. He returns to the emergency department because of recurrent seizure and chest discomfort after hitting his chest against a bench when he fell during seizure. Denies any other injuries. Chest x -ray with no acute cardiopulmonary disease. Seizure breakthrough. Stable rpt EEG neg. Continue Keppra with increased seizure precautions. Lamictal increased to 50 mg BID. Negative UDS. Neuro consulted Chest pain likely secondary to trauma. Ruled out for [place]. Chest x-ray without acute cardiopulmonary disease. EKG with sinus rhythm T changes in the inferolateral leads no significant change from previous. Recent echocardiogram showed ejection fraction 55% with no ventricular wall dysfunction. Mild AST elevation. Resolved Acute kidney injury. Resolved DVT prophylaxis with subcu heparin Discharge Planning: Discharge patient to home Condition on discharge: Improved Regular Diet as tolerated Ad Farrah activity, no driving, swimming alone, carrying young children and climbing heights Rx written: Lamictal Follow-up with primary care physician and neuro
--- NOTE | 2018-05-05 16:15 | ECG ---
Date Performed: 05/04/2018 Time Performed: 16:44:28 PTAGE: 58 years EKG: Sinus rhythm POSSIBLE LEFT ATRIAL ENLARGEMENT NONSPECIFIC T-WAVE ABNORMALITY BORDERLINE ECG PREVIOUS TRACING ;05/04/2018 @06.34.30 Since the previous tracing, no significant change noted DOCTOR: Deric Leiva Interpretating Date/Time 05/05/2018 16:14:21
[2018-05-08 16:04] LABS: Levetiracetam 32.2 mcg/mL (12.0 - 46.0)
[2018-05-11 11:51] LABS: Lamotrigine 0.9 mcg/mL (4.0-18.0)
== END 2018-05-05 13:25 | disposition home or self-care (01) ==
LOC: NEPE 21:14 → NEDA 21:14 → NEPFCDU 05-04 04:35
PROVIDERS: ADMIT Internal Medicine; ATTEND Internal Medicine
DX: E11.9 Type 2 diabetes mellitus without complications; I10 Essential (primary) hypertension; E78.5 Hyperlipidemia, unspecified; Z86.73 Personal history of transient ischemic attack (TIA), and cerebral infarction without residual deficits; W19.XXXA Unspecified fall, initial encounter; R56.9 Unspecified convulsions; R07.9 Chest pain, unspecified; F80.81 Childhood onset fluency disorder; N17.9 Acute kidney failure, unspecified; W22.8XXA Striking against or struck by other objects, initial encounter